=== PATIENT | female | born 1965 | race Hispanic/Latino ===

== ENCOUNTER 2017-11-01 17:33 | Observation (INO) | payer OTHER ==
[~2017-11-01] VITALS: Ht 177.8 cm; Wt 120.1 kg
[~2017-11-01 17:33] MED LIST: METF850T2 PO; SERT25TA PO
[2017-11-01 18:28] LABS: BASOPHILS % (AUTO) 0.3 % (0.0-5.0); EOSINOPHILS % (AUTO) 0.4 % (0.0-8.0); HEMATOCRIT 34.9 % (36-48); LYMPHOCYTES % (AUTO) 22.9 % (21.0-51.0); MEAN CORPUSCULAR HEMOGLOBIN 28.2 pg (27.0-33.0); MEAN CORPUSCULAR HGB CONC 33.9 g/dL (32.0-36.0); MEAN CORPUSCULAR VOLUME 83.1 fL (79-99); MONOCYTES % (AUTO) 9.4 % (3.0-13.0); PLATELET COUNT (AUTO) 192 K/uL (130-400); RED CELL DISTRIBUTION WIDTH 15.6 % (11.0-15.5); WHITE BLOOD COUNT (AUTO) 9.5 K/uL (4.8-10.8)
[2017-11-01 18:45] LABS: INR 1.94 (0.85-1.15); PARTIAL THROMBOPLASTIN TIME 41.7 SEC (26.3-35.5); PROTHROMBIN TIME 20.1 SEC (9.6-11.6)
[2017-11-01 18:46] LABS: CREATININE 0.8 mg/dL (0.5-1.5); POTASSIUM 3.3 mmol/L (3.5-5.1)
[2017-11-01] MEDS ORDERED: CEFTRIAXONE SODIUM 1 GM ONE (18:48)
[2017-11-01] MEDS ORDERED: POTASSIUM CHLORIDE 20 MEQ ERTAB PO ONE (18:49)
[2017-11-01 18:50] LABS: ALBUMIN 3.4 g/dL (3.5-5.0); BILIRUBIN,TOTAL 0.4 mg/dL (0.2-1.0); TOTAL PROTEIN, SERUM 7.7 g/dL (6.0-8.3)
[2017-11-01 20:25] LABS: APPEARANCE,URINE Clear (CLEAR); BILIRUBIN,URINE Negative (NEGATIVE); COLOR,URINE Yellow (YELLOW); GLUCOSE, URINE (UA) Negative (NEGATIVE); KETONES,URINE Negative (NEGATIVE); LEUKOCYTE ESTERASE ,URINE Trace (NEGATIVE); NITRATE,URINE Positive (NEGATIVE); OCCULT BLOOD,URINE Large (NEGATIVE); PROTEIN,URINE Negative (NEGATIVE)
[2017-11-01 21:05] LABS: BACTERIA,URINE Few /HPF (None Seen); SQUAMOUS EPITHELIAL CELL,UR Few /HPF (0-2)
[2017-11-01 21:06] LABS: MUCUS,URINE Rare LPF (None Seen)
[2017-11-01] MEDS ORDERED: ZOSYN 3.375GM+NS 50ML 50 ML IV ONE (23:19)
[2017-11-01] MEDS ORDERED: VANCOMYCIN PROTOCOL PER PHARMACY IV SCH (23:30)
[2017-11-01] MEDS ORDERED: HYDRALAZINE HCL 20 MG/ML VIAL IV PRN (23:30)
[2017-11-01] MEDS ORDERED: GLUCAGON 1MG KIT 1 MG ML IM PRN (23:30)
[2017-11-01] MEDS ORDERED: DEXTROSE 50%-WATER 50 ML DISP.SYRIN IV PRN (23:30)
[2017-11-01] MEDS ORDERED: POTASSIUM CHLORIDE 20 MEQ ERTAB PO PRN (23:30)
[2017-11-01] MEDS ORDERED: LIDOCAINE HCL-MPF 1% 2ML VIAL IJ PRN (23:30)
[2017-11-01] MEDS ORDERED: POTASSIUM CHLORIDE 10% ELIXIR 20 MEQ/15 ML UDCUP PO PRN (23:30)
[2017-11-01] MEDS ORDERED: POTASSIUM CHLORIDE 20MEQ/100ML 100 ML IV PRN (23:30)
[2017-11-02] VITALS (7 sets, daily range): BP systolic 121–165; BP diastolic 47–75
[2017-11-02] MEDS: SODIUM CHLORIDE 0.9% 1000ML 1,000 ML IV SCH ×3 (00:52→16:04)
[2017-11-02] MEDS: VANCOMYCIN 1GM+NS 250ML 250 ML IV SCH ×2 (00:52→07:55)
[2017-11-02] MEDS ORDERED: FURO20TA4 PO (01:03)
[2017-11-02] MEDS ORDERED: SERT100T12 PO (01:03)
[2017-11-02] MEDS ORDERED: ATEN25TA PO (01:03)
[2017-11-02] MEDS ORDERED: AEC81 PO (01:03)
[2017-11-02] MEDS ORDERED: CEPH500C2 PO (01:03)
[2017-11-02] MEDS ORDERED: WARF6TAB49 PO (01:03)
[2017-11-02] MEDS ORDERED: PRAV20TA4 PO (01:03)
[2017-11-02 04:59] LABS: BASOPHILS % (AUTO) 0.3 % (0.0-5.0); EOSINOPHILS % (AUTO) 1.2 % (0.0-8.0); HEMATOCRIT 32.2 % (36-48); LYMPHOCYTES % (AUTO) 30.7 % (21.0-51.0); MEAN CORPUSCULAR HEMOGLOBIN 28.4 pg (27.0-33.0); MEAN CORPUSCULAR HGB CONC 33.9 g/dL (32.0-36.0); MEAN CORPUSCULAR VOLUME 83.5 fL (79-99); MONOCYTES % (AUTO) 10.2 % (3.0-13.0); NEUTROPHILS % (AUTO) 57.6 % (40.0-77.0); NUCLEATED RED BLOOD CELLS 0.1 % (0.0-0.19); PLATELET COUNT (AUTO) 197 K/uL (130-400); RED BLOOD CELL COUNT(AUTO) 3.86 MIL/uL (4.00-5.50); RED CELL DISTRIBUTION WIDTH 15.9 % (11.0-15.5); WHITE BLOOD COUNT (AUTO) 7.4 K/uL (4.8-10.8)
[2017-11-02] MEDS ORDERED: COMPOUND IV REFRIGERATED 1 EACH IVSOLN MISC PRN (05:00)
[2017-11-02 05:18] LABS: CREATININE 0.8 mg/dL (0.5-1.5); POTASSIUM 3.9 mmol/L (3.5-5.1)
[2017-11-02] MEDS: INSULIN R PO SS1 SQ SCH ×4 (06:24→21:00)
[2017-11-02] MEDS: ZOSYN 3.375GM+NS 50ML 50 ML IV SCH ×3 (08:00→16:15)
[2017-11-02] MEDS ORDERED: VANCOMYCIN 750MG + NS 250 ML IV SCH ×2 (09:30)
[2017-11-02] MEDS ORDERED: VANCOMYCIN 1.75 GM in SODIUM CHLORIDE 0.9% 250 ML IV SCH (10:30)
[2017-11-02] MEDS: ENOXAPARIN SODIUM 30 MG/0.3 ML SQ SCH ×2 (11:55→21:02)
[2017-11-02] MEDS: FAMOTIDINE 20MG TAB 20 MG TAB PO SCH ×2 (11:57→21:00)
[2017-11-02] MEDS ORDERED: WARFARIN SODIUM 2 MG TAB PO SCH (16:00)
[2017-11-02] MEDS ORDERED: SERTRALINE HCL 25 MG PO SCH (21:00)
[2017-11-02] MEDS ORDERED: SERTRALINE HCL 50 MG TABLET PO SCH ×2 (21:00)
[2017-11-02] MEDS ORDERED: ATORVASTATIN CALCIUM 10 MG TABLET PO SCH (21:00)
[2017-11-02] MEDS: ATENOLOL 25 MG TABLET PO SCH (21:15)
[2017-11-02] MEDS: VANCOMYCIN 1.75 GM in SODIUM CHLORIDE 0.9% 250 ML IV SCH (22:23)
[2017-11-03] VITALS: BP 130/52
[2017-11-03] MEDS: ZOSYN 3.375GM+NS 50ML 50 ML IV SCH ×2 (01:03→08:36)
[2017-11-03 04:00] VITALS: BP 131/67
[2017-11-03 05:52] LABS: BASOPHILS % (AUTO) 0.5 % (0.0-5.0); EOSINOPHILS % (AUTO) 1.4 % (0.0-8.0); HEMATOCRIT 33.4 % (36-48); MEAN CORPUSCULAR HEMOGLOBIN 27.9 pg (27.0-33.0); MEAN CORPUSCULAR HGB CONC 33.1 g/dL (32.0-36.0); MEAN CORPUSCULAR VOLUME 84.2 fL (79-99); MONOCYTES % (AUTO) 9.2 % (3.0-13.0); NEUTROPHILS % (AUTO) 48.9 % (40.0-77.0); PLATELET COUNT (AUTO) 210 K/uL (130-400); RED BLOOD CELL COUNT(AUTO) 3.97 MIL/uL (4.00-5.50); WHITE BLOOD COUNT (AUTO) 5.7 K/uL (4.8-10.8)
[2017-11-03 06:07] LABS: CREATININE 0.8 mg/dL (0.5-1.5)
[2017-11-03] MEDS: INSULIN R PO SS1 SQ SCH ×2 (06:48→11:30)
[2017-11-03 07:56] VITALS: BP 149/99
[2017-11-03] MEDS: METFORMIN HCL 850 MG TABLET PO SCH ×2 (08:00→08:36)
[2017-11-03] MEDS: FAMOTIDINE 20MG TAB 20 MG TAB PO SCH (08:36)
[2017-11-03] MEDS: ATENOLOL 25 MG TABLET PO SCH (08:37)
[2017-11-03] MEDS: ENOXAPARIN SODIUM 30 MG/0.3 ML SQ SCH (08:38)
[2017-11-03] MEDS ORDERED: FUROSEMIDE 20 MG TABLET PO SCH (09:00)
[2017-11-03] MEDS ORDERED: ASPIRIN 81 MG EC TAB PO SCH (09:00)
[2017-11-03 11:20] VITALS: BP 135/66
[2017-11-03] MEDS: VANCOMYCIN 1.75 GM in SODIUM CHLORIDE 0.9% 250 ML IV SCH (11:58)
[2017-11-03] MEDS ORDERED: LEVO500T2 PO (12:08)
== END 2017-11-03 13:35 | disposition home or self-care (01) ==
LOC: EDH 17:33 → EDHIP 22:20 → 2AH 23:57 → 4CH 11-02 14:58
PROVIDERS: ADMIT Internal Medicine Nephrology; ATTEND Internal Medicine Nephrology
DX: L03.115 Cellulitis of right lower limb (principal); I71.4 Abdominal aortic aneurysm, without rupture; I10 Essential (primary) hypertension; E11.9 Type 2 diabetes mellitus without complications; E87.6 Hypokalemia; N39.0 Urinary tract infection, site not specified; Z95.2 Presence of prosthetic heart valve; Z83.3 Family history of diabetes mellitus; Z90.710 Acquired absence of both cervix and uterus; Z79.01 Long term (current) use of anticoagulants
CPT/HCPCS: 36415 ×3; 80048 ×2; 80053; 81001; 82948 ×6; 83605; 85025 ×3; 85610; 85730; 87040 ×3; 87088; 93971; 96365; 96366 ×2; 96367; 96372 ×2; 96375; 99285; G0378 ×39; J0696; J1650 ×3; J2543 ×4; J3370 ×3; J7030 ×3

== ENCOUNTER → 2018-01-15 | Outpatient (CLI) | payer OTHER ==
[~2018-01-15] MED LIST changes: +AEC81 PO; +ATEN25TA PO; +FURO20TA4 PO; +IOPAMIDOL-370 100 ML VIAL IV ONE; +LEVO500T2 PO; -METF850T2 PO; +PRAV20TA4 PO; +SERT100T12 PO; -SERT25TA PO; +WARF6TAB49 PO
== END | disposition home or self-care (01) ==
LOC: OIH 10:06
PROVIDERS: ATTEND Internal Medicine Cardiovascular Disease
DX: I71.4 Abdominal aortic aneurysm, without rupture (principal); I71.2 Thoracic aortic aneurysm, without rupture; I71.02 Dissection of abdominal aorta; K76.0 Fatty (change of) liver, not elsewhere classified; K76.89 Other specified diseases of liver
CPT/HCPCS: 71275; 74174; Q9967

== ENCOUNTER 2018-04-02 08:00 | Inpatient (IN) | payer OTHER ==
[~2018-04-02] VITALS: Ht 177.8 cm; Wt 128.3 kg
[~2018-04-02 08:00] MED LIST changes: -AEC81 PO; -ATEN25TA PO; -IOPAMIDOL-370 100 ML VIAL IV ONE; -LEVO500T2 PO; +LOSA50TA25 PO; -PRAV20TA4 PO; -SERT100T12 PO; -WARF6TAB49 PO
[2018-04-02 12:05] LABS: BASOPHILS % (AUTO) 0.7 % (0.0-5.0); EOSINOPHILS % (AUTO) 0.6 % (0.0-8.0); HEMATOCRIT 37.3 % (36-48); LYMPHOCYTES % (AUTO) 35.4 % (21.0-51.0); MEAN CORPUSCULAR HEMOGLOBIN 27.3 pg (27.0-33.0); MEAN CORPUSCULAR VOLUME 82.7 fL (79-99); MONOCYTES % (AUTO) 5.9 % (3.0-13.0); NEUTROPHILS % (AUTO) 57.4 % (40.0-77.0); PLATELET COUNT (AUTO) 203 K/uL (130-400); RED BLOOD CELL COUNT(AUTO) 4.51 MIL/uL (4.00-5.50); RED CELL DISTRIBUTION WIDTH 16.2 % (11.0-15.5); WHITE BLOOD COUNT (AUTO) 5.8 K/uL (4.8-10.8)
[2018-04-02 12:09] VITALS: BP 149/55
[2018-04-02 12:13] LABS: CREATININE 0.8 mg/dL (0.5-1.5); POTASSIUM 3.7 mmol/L (3.5-5.1)
[2018-04-02 12:24] LABS: INR 2.46 (0.85-1.15); PARTIAL THROMBOPLASTIN TIME 48.2 SEC (26.3-35.5); PROTHROMBIN TIME 25.4 SEC (9.6-11.6)
[2018-04-02 12:33] LABS: APPEARANCE,URINE Cloudy (CLEAR); BILIRUBIN,URINE Negative (NEGATIVE); COLOR,URINE Yellow (YELLOW); GLUCOSE, URINE (UA) Negative (NEGATIVE); KETONES,URINE Negative (NEGATIVE); LEUKOCYTE ESTERASE ,URINE Large (NEGATIVE); NITRATE,URINE Negative (NEGATIVE); OCCULT BLOOD,URINE Large (NEGATIVE); PH,URINE 5.5 (5.0-8.0); PROTEIN,URINE Negative (NEGATIVE); UROBILINOGEN,URINE 0.2 mg/dL (0.2-1.0)
[2018-04-02 12:55] LABS: BACTERIA,URINE Moderate /HPF (None Seen)
[2018-04-02 12:56] LABS: YEAST,URINE BUDDING Few /HPF (None Seen)
[2018-04-02] MEDS ORDERED: SERT100T12 PO (13:15)
[2018-04-02] MEDS ORDERED: ALBUTEROL SULF IH (13:15)
[2018-04-02] MEDS ORDERED: OMEG-148 PO (13:15)
[2018-04-02] MEDS ORDERED: WARF6TAB23 PO (13:15)
[2018-04-02] MEDS ORDERED: ASPI-555 PO (13:15)
[2018-04-02] MEDS ORDERED: FLUT16H NS (13:15)
[2018-04-02] MEDS ORDERED: PRAV20TA4 PO (13:15)
[2018-04-04] VITALS (13 sets, daily range): BP systolic 117–164; BP diastolic 43–74
[2018-04-04] MEDS ORDERED: PHENYLEPHRINE HCL 10 MG/ML 1ML VIAL IV ONE (11:06)
[2018-04-04] MEDS ORDERED: NOREPINEPHRINE BITARTRATE 1 MG/1 ML ML IV ONE (11:06)
[2018-04-04] MEDS ORDERED: NITROGLYCERIN 50 MG/D5% WATER 1 BOT ONE (11:09)
[2018-04-04] MEDS ORDERED: LIDOCAINE HCL-MPF 1% 2ML VIAL ONE (11:34)
[2018-04-04 11:44] LABS: INR 1.35 (0.85-1.15); PARTIAL THROMBOPLASTIN TIME 37.2 SEC (26.3-35.5); PROTHROMBIN TIME 14.1 SEC (9.6-11.6)
[2018-04-04] MEDS ORDERED: ATEN25TA PO (11:58)
[2018-04-04] MEDS ORDERED: SODIUM CHLORIDE 0.9% 1000ML 1,000 ML IV ONE (12:57)
[2018-04-04] MEDS ORDERED: PROPOFOL 10 MG/ML 20ML VIAL IV ONE (13:00)
[2018-04-04] MEDS ORDERED: FENTANYL CITRATE PF 50 MCG/1 ML 2ML VIAL ONE (13:00)
[2018-04-04] MEDS ORDERED: LIDOCAINE PF 2% 5ML ABBOJECT ONE (13:01)
[2018-04-04] MEDS ORDERED: HEPARIN SODIUM 1000UNIT/ML 10ML VIAL ONE ×2 (13:01→14:08)
[2018-04-04] MEDS ORDERED: ROCURONIUM 10MG/1ML SYR 10 MG/ML ML ONE (13:06)
[2018-04-04] MEDS ORDERED: SUCCINYLCHOLINE 200MG/10ML SYR ONE (13:06)
[2018-04-04] MEDS ORDERED: MIDAZOLAM HCL 1 MG/ML 2ML VIAL ONE (13:53)
[2018-04-04] MEDS ORDERED: IODIXANOL 320 MG/ML 100 ML VIAL ONE (14:08)
[2018-04-04] MEDS ORDERED: CEFAZOLIN SODIUM 1 GM VIAL ONE (14:50)
[2018-04-04] MEDS ORDERED: GLYCOPYRROLATE 0.2 MG/ML 5 ML VIAL ONE ×2 (15:01→16:25)
[2018-04-04] MEDS ORDERED: NEOSTIGMINE 5MG/5ML SYR IV ONE ×2 (15:45→16:25)
[2018-04-04] MEDS ORDERED: ACETAMINOPHEN 325 MG TAB PO PRN (16:15)
[2018-04-04] MEDS ORDERED: ACETAMINOPHEN-CODEINE 300/30MG TAB PO PRN ×2 (16:15)
[2018-04-04] MEDS ORDERED: MORPHINE SULFATE 5 MG/ML VIAL IV PRN (16:15)
[2018-04-04] MEDS ORDERED: SODIUM CHLORIDE 0.9% 1000ML 1,000 ML IV SCH (16:15)
[2018-04-04] MEDS ORDERED: FLUTICASONE PROPIONATE 50MCG/SPRAY 16 GM BOTTLE NS SCH (16:15)
[2018-04-04] MEDS ORDERED: MORPHINE SULFATE 4 MG/1ML SYG IV PRN (16:15)
[2018-04-04] MEDS ORDERED: ONDANSETRON HCL 4 MG/2 ML VIAL IV PRN (16:15)
[2018-04-04] MEDS ORDERED: NITROGLYCERIN 50 MG/D5% WATER 250 BOT IV PRN (17:00)
[2018-04-04] MEDS ORDERED: NICARDIPINE HCL 100 MG in SODIUM CHLORIDE 0.9% 60 ML IV PRN (17:00)
[2018-04-04] MEDS: ACETAMINOPHEN 325 MG TAB PO PRN (19:36)
[2018-04-04] MEDS: ATENOLOL 25 MG TABLET PO SCH (21:00)
[2018-04-04] MEDS ORDERED: SIMVASTATIN 10 MG TABLET PO SCH (21:00)
[2018-04-04] MEDS ORDERED: WARFARIN SODIUM 10 MG TABLET PO ONE (21:00)
[2018-04-04] MEDS ORDERED: ASPIRIN 81MG TAB.CHEW PO SCH (21:00)
[2018-04-04] MEDS ORDERED: SERTRALINE HCL 50 MG TABLET PO SCH (21:00)
[2018-04-04] MEDS: FLUTICASONE PROPIONATE 50MCG/SPRAY 16 GM BOTTLE NS SCH ×2 (21:00→21:03)
[2018-04-04] MEDS: CEFAZOLIN SODIUM 1 GM VIAL IVP SCH (22:20)
[2018-04-04] MEDS ORDERED: PHARMACY COMMUNICATION MISC SCH (23:00)
[2018-04-05] VITALS (11 sets, daily range): BP systolic 97–140; BP diastolic 34–82
[2018-04-05 03:54] LABS: HEMATOCRIT 34.9 % (36-48); MEAN CORPUSCULAR HEMOGLOBIN 26.7 pg (27.0-33.0); MEAN CORPUSCULAR VOLUME 83.4 fL (79-99); PLATELET COUNT (AUTO) 167 K/uL (130-400); RED BLOOD CELL COUNT(AUTO) 4.19 MIL/uL (4.00-5.50); RED CELL DISTRIBUTION WIDTH 16.3 % (11.0-15.5); WHITE BLOOD COUNT (AUTO) 8.2 K/uL (4.8-10.8)
[2018-04-05 04:07] LABS: INR 1.18 (0.85-1.15); PROTHROMBIN TIME 12.3 SEC (9.6-11.6)
[2018-04-05 04:21] LABS: CREATININE 0.7 mg/dL (0.5-1.5); POTASSIUM 3.9 mmol/L (3.5-5.1)
[2018-04-05] MEDS: CEFAZOLIN SODIUM 1 GM VIAL IVP SCH (06:40)
[2018-04-05] MEDS: ACETAMINOPHEN 325 MG TAB PO PRN (08:26)
[2018-04-05] MEDS ORDERED: WARFARIN SODIUM 10 MG TABLET PO SCH (08:30)
[2018-04-05] MEDS: ATENOLOL 25 MG TABLET PO SCH (09:00)
[2018-04-05] MEDS ORDERED: LOSARTAN 50 MG TABLET PO SCH (09:00)
[2018-04-05] MEDS ORDERED: FUROSEMIDE 20 MG TABLET PO SCH (09:00)
[2018-04-05] MEDS: FLUTICASONE PROPIONATE 50MCG/SPRAY 16 GM BOTTLE NS SCH (09:00)
[2018-04-05] MEDS ORDERED: WARFARIN SODIUM 2 MG TAB PO SCH (16:00)
[2018-04-05] MEDS ORDERED: FISH OIL 1000 MG/CAP PO SCH (21:00)
== END 2018-04-05 11:20 | disposition home or self-care (01) | DRG 181 ==
LOC: EDSTATUS 08:00 → DAHIP 04-04 11:06 → 2CH 04-04 16:21
PROVIDERS: ADMIT Internal Medicine Cardiovascular Disease; ATTEND Internal Medicine Cardiovascular Disease
PROC: 04QK0ZZ Repair Right Femoral Artery, Open Approach (ICD-10-PCS; principal; 2018-04-04)
PROC: 04V03DZ Restriction of Abdominal Aorta with Intraluminal Device, Percutaneous Approach (ICD-10-PCS; 2018-04-04)
PROC: B4101ZZ Fluoroscopy of Abdominal Aorta using Low Osmolar Contrast (ICD-10-PCS; 2018-04-04)
DX: I71.4 Abdominal aortic aneurysm, without rupture (principal); I72.3 Aneurysm of iliac artery; Q87.40 Marfan syndrome, unspecified; E11.9 Type 2 diabetes mellitus without complications; I10 Essential (primary) hypertension; Z95.2 Presence of prosthetic heart valve; Z79.899 Other long term (current) drug therapy; Z90.710 Acquired absence of both cervix and uterus; Z80.8 Family history of malignant neoplasm of other organs or systems; Z83.3 Family history of diabetes mellitus
CPT/HCPCS: 34705; 34713; 36415; 71045; 80048; 81001; 85025; 85027; 85347; 85610; 85730; 86850; 86900; 86901; 86922; 93005; A4218; A4344; A4606; C1760; C1769; C1887; C1894; J0330; J0690; J1644; J2001; J2250; J2370; J2704; J2710; J3010; J3490; J7030; Q9967

== ENCOUNTER → 2018-06-01 | Outpatient (CLI) | payer OTHER ==
[~2018-06-01] MED LIST changes: +ALBUTEROL SULF IH; +ASPI-555 PO; +ATEN25TA PO; +FLUT16H NS; +IOHEXOL 350 MG/ML 100ML INFUS..BTL IV ONE; +OMEG-148 PO; +PRAV20TA4 PO; +SERT100T12 PO; +WARF6TAB23 PO
== END | disposition home or self-care (01) ==
LOC: OIH 08:05
PROVIDERS: ATTEND Internal Medicine Cardiovascular Disease
DX: I71.01 Dissection of thoracic aorta (principal); I71.2 Thoracic aortic aneurysm, without rupture; I71.4 Abdominal aortic aneurysm, without rupture; I10 Essential (primary) hypertension
CPT/HCPCS: 71275; 74174; Q9967

== ENCOUNTER 2018-10-19 22:39 | Emergency (ER) | payer MEDICARE, OTHER ==
[~2018-10-19 22:39] MED LIST changes: +CEFTRIAXONE SODIUM 2 GM VIAL IVP ONE; -IOHEXOL 350 MG/ML 100ML INFUS..BTL IV ONE; -LOSA50TA25 PO; +LOSA50TA64 PO
[2018-10-19 23:42] LABS: BASOPHILS % (AUTO) 0.2 % (0.0-5.0); EOSINOPHILS % (AUTO) 0.1 % (0.0-8.0); HEMATOCRIT 33.5 % (36-48); LYMPHOCYTES % (AUTO) 5.4 % (21.0-51.0); MEAN CORPUSCULAR HEMOGLOBIN 26.4 pg (27.0-33.0); MEAN CORPUSCULAR HGB CONC 32.5 g/dL (32.0-36.0); MEAN CORPUSCULAR VOLUME 81.3 fL (79-99); MONOCYTES % (AUTO) 6.6 % (3.0-13.0); NEUTROPHILS % (AUTO) 87.7 % (40.0-77.0); PLATELET COUNT (AUTO) 167 K/uL (130-400); RED BLOOD CELL COUNT(AUTO) 4.12 MIL/uL (4.00-5.50); RED CELL DISTRIBUTION WIDTH 16.4 % (11.0-15.5); WHITE BLOOD COUNT (AUTO) 10.3 K/uL (4.8-10.8)
[2018-10-19 23:52] LABS: CREATININE 0.9 mg/dL (0.5-1.5); POTASSIUM 3.8 mmol/L (3.5-5.1)
[2018-10-19 23:56] LABS: ALBUMIN 3.7 g/dL (3.5-5.0); BILIRUBIN,TOTAL 0.4 mg/dL (0.2-1.0); TOTAL PROTEIN, SERUM 7.5 g/dL (6.0-8.3)
[2018-10-19] MEDS ORDERED: SODIUM CHLORIDE 0.9% 1000ML 1,000 ML IV ONE (23:57)
[2018-10-19] MEDS ORDERED: CEFTRIAXONE SODIUM 2 GM VIAL IVP ONE (23:57)
[2018-10-20] LABS: INR 1.9 (0.85-1.15); PARTIAL THROMBOPLASTIN TIME 38.1 SEC (26.3-35.5); PROTHROMBIN TIME 19.7 SEC (9.6-11.6)
[2018-10-20] MEDS ORDERED: ACETAMINOPHEN EXTRA STRENGTH 500 MG TABLET ONE (00:59)
[2018-10-20 01:35] LABS: APPEARANCE,URINE Cloudy (CLEAR); BILIRUBIN,URINE Negative (NEGATIVE); COLOR,URINE Yellow (YELLOW); GLUCOSE, URINE (UA) Negative (NEGATIVE); KETONES,URINE Negative (NEGATIVE); LEUKOCYTE ESTERASE ,URINE Moderate (NEGATIVE); NITRATE,URINE Positive (NEGATIVE); OCCULT BLOOD,URINE Moderate (NEGATIVE); PH,URINE 5.5 (5.0-8.0); PROTEIN,URINE Negative (NEGATIVE)
[2018-10-20 01:44] LABS: BACTERIA,URINE Moderate /HPF (None Seen)
[2018-10-20 02:49] LABS: BASOPHILS % (AUTO) 0.3 % (0.0-5.0); EOSINOPHILS % (AUTO) 0.1 % (0.0-8.0); HEMATOCRIT 32.4 % (36-48); LYMPHOCYTES % (AUTO) 9.7 % (21.0-51.0); MEAN CORPUSCULAR HEMOGLOBIN 26.4 pg (27.0-33.0); MEAN CORPUSCULAR HGB CONC 32.8 g/dL (32.0-36.0); MEAN CORPUSCULAR VOLUME 80.4 fL (79-99); MONOCYTES % (AUTO) 8.1 % (3.0-13.0); NEUTROPHILS % (AUTO) 81.8 % (40.0-77.0); PLATELET COUNT (AUTO) 160 K/uL (130-400); RED BLOOD CELL COUNT(AUTO) 4.03 MIL/uL (4.00-5.50); RED CELL DISTRIBUTION WIDTH 16.4 % (11.0-15.5); WHITE BLOOD COUNT (AUTO) 9.7 K/uL (4.8-10.8)
[2018-10-20] MEDS ORDERED: ONDANSETRON HCL 4 MG/2 ML VIAL ONE (03:20)
== END 2018-10-20 03:58 | disposition home or self-care (01) ==
LOC: EDH 22:39
DX: N39.0 Urinary tract infection, site not specified (principal); I10 Essential (primary) hypertension; E11.9 Type 2 diabetes mellitus without complications; Z90.710 Acquired absence of both cervix and uterus
CPT/HCPCS: 36415 ×2; 71045; 80053; 81001; 82550; 83605 ×2; 84484; 85025 ×2; 85610; 85730; 87040 ×2; 87077 ×2; 87088; 87186 ×2; 87804 ×2; 93005; 96361; 96374; 99284; J0696; J7030; J2405

== ENCOUNTER 2020-09-29 18:34 | Inpatient (IN) | payer MEDICARE, OTHER ==
[~2020-09-29] VITALS: Ht 177.8 cm; Wt 138.1 kg
[~2020-09-29 18:34] MED LIST changes: -ASPI-555 PO; +ASPI-556 PO; -CEFTRIAXONE SODIUM 2 GM VIAL IVP ONE; +SERT-440 PO; -SERT100T12 PO
[2020-09-29 19:17] LABS: BASOPHILS % (AUTO) 0.4 % (0.0-5.0); EOSINOPHILS % (AUTO) 0.4 % (0.0-8.0); HEMATOCRIT 36.4 % (36-48); LYMPHOCYTES % (AUTO) 21.6 % (21.0-51.0); MEAN CORPUSCULAR HEMOGLOBIN 26.7 pg (27.0-33.0); MEAN CORPUSCULAR HGB CONC 32.4 g/dL (32.0-36.0); MEAN CORPUSCULAR VOLUME 82.4 fL (79-99); MONOCYTES % (AUTO) 6.2 % (3.0-13.0); NEUTROPHILS % (AUTO) 70.8 % (40.0-77.0); PLATELET COUNT (AUTO) 217 K/uL (130-400); RED BLOOD CELL COUNT(AUTO) 4.42 MIL/uL (4.00-5.50); RED CELL DISTRIBUTION WIDTH 13.7 % (11.0-15.5); WHITE BLOOD COUNT (AUTO) 8.2 K/uL (4.8-10.8)
[2020-09-29 19:21] LABS: CREATININE 1.1 mg/dL (0.5-1.5)
[2020-09-29 19:25] LABS: ALBUMIN 3.6 g/dL (3.5-5.0); BILIRUBIN,TOTAL 0.4 mg/dL (0.2-1.0); TOTAL PROTEIN, SERUM 7.4 g/dL (6.0-8.3)
[2020-09-29 19:28] LABS: APPEARANCE,URINE Cloudy (CLEAR); BILIRUBIN,URINE Negative (NEGATIVE); COLOR,URINE Yellow (YELLOW); GLUCOSE, URINE (UA) >=1000 mg/dL (NEGATIVE); KETONES,URINE Negative (NEGATIVE); LEUKOCYTE ESTERASE ,URINE Small (NEGATIVE); NITRATE,URINE Positive (NEGATIVE); OCCULT BLOOD,URINE Large (NEGATIVE); PROTEIN,URINE Negative (NEGATIVE)
[2020-09-29 19:50] LABS: PROTHROMBIN TIME 34.5 SEC (9.6-11.6)
[2020-09-29 19:57] LABS: BACTERIA,URINE Few /HPF (None Seen)
[2020-09-29 20:09] LABS: INR 3.55 (0.85-1.15)
[2020-09-29] MEDS ORDERED: IOHEXOL 350 MG/ML 100ML INFUS..BTL IV ONE (20:17)
[2020-09-30] MEDS ORDERED: CEFTRIAXONE 1G VIAL ONE (01:59)
[2020-09-30] MEDS ORDERED: 0.9%NACL 1000ML 1,000 ML IV ONE (02:00)
[2020-09-30] MEDS: FUROSEMIDE 20 MG TABLET PO SCH (09:30)
[2020-09-30 09:50] LABS: HEMOGLOBIN A1C 11.7 % (4.0-6.0)
[2020-09-30] MEDS: ATENOLOL 25 MG TABLET PO SCH ×2 (10:06→22:45)
[2020-09-30] MEDS ORDERED: LOSARTAN 50 MG TABLET PO SCH (14:00)
[2020-09-30] MEDS: ASPIRIN 81MG CHEW TAB PO SCH (14:43)
[2020-09-30] MEDS: SERTRALINE HCL 50 MG TABLET PO SCH (14:44)
[2020-09-30] MEDS: CEFTRIAXONE 1G VIAL IVP SCH (14:48)
[2020-09-30 15:12] VITALS: BP 130/50
[2020-09-30] MEDS: INSULIN HUMULIN R 100 UNIT/ML 3ML SQ SCH ×2 (16:54→22:57)
[2020-09-30] MEDS: WARFARIN SODIUM 2 MG TAB PO SCH (17:51)
[2020-09-30 20:00] VITALS: BP 125/59
[2020-09-30] MEDS: SIMVASTATIN 20 MG TABLET PO SCH (22:45)
[2020-10-01] VITALS: BP 123/56
[2020-10-01 04:00] VITALS: BP_SYST 121; BP_SYST 147; BP_DIAS 54; BP_DIAS 67
[2020-10-01 06:12] LABS: BASOPHILS % (AUTO) 0.3 % (0.0-5.0); EOSINOPHILS % (AUTO) 0.9 % (0.0-8.0); HEMATOCRIT 37.1 % (36-48); LYMPHOCYTES % (AUTO) 37.4 % (21.0-51.0); MEAN CORPUSCULAR HEMOGLOBIN 26.4 pg (27.0-33.0); MEAN CORPUSCULAR HGB CONC 31.3 g/dL (32.0-36.0); MEAN CORPUSCULAR VOLUME 84.3 fL (79-99); MONOCYTES % (AUTO) 6.4 % (3.0-13.0); NEUTROPHILS % (AUTO) 54.7 % (40.0-77.0); PLATELET COUNT (AUTO) 221 K/uL (130-400); WHITE BLOOD COUNT (AUTO) 6.5 K/uL (4.8-10.8)
[2020-10-01 06:21] LABS: CREATININE 0.7 mg/dL (0.5-1.5); POTASSIUM 3.4 mmol/L (3.5-5.1)
[2020-10-01 06:24] LABS: INR 2.7 (0.85-1.15); PROTHROMBIN TIME 26.9 SEC (9.6-11.6)
[2020-10-01] MEDS: INSULIN HUMULIN R 100 UNIT/ML 3ML SQ SCH ×4 (07:01→20:22)
[2020-10-01 07:44] VITALS: BP 128/61
[2020-10-01] MEDS ORDERED: ACETAMINOPHEN 325 MG TAB PO PRN (09:00)
[2020-10-01] MEDS ORDERED: ACETAMINOPHEN 325 MG TAB ONE (09:13)
[2020-10-01] MEDS: CEFTRIAXONE 1G VIAL IVP SCH (09:18)
[2020-10-01] MEDS: ASPIRIN 81MG CHEW TAB PO SCH (09:18)
[2020-10-01] MEDS: SERTRALINE HCL 50 MG TABLET PO SCH (09:19)
[2020-10-01] MEDS: FUROSEMIDE 20 MG TABLET PO SCH (09:19)
[2020-10-01] MEDS: ATENOLOL 25 MG TABLET PO SCH ×2 (09:20→20:25)
[2020-10-01] MEDS: LOSARTAN 50 MG TABLET PO SCH (09:20)
[2020-10-01] MEDS ORDERED: KCL 20 MEQ ERTAB PO SCH (09:30)
[2020-10-01 11:34] VITALS: BP 126/59
[2020-10-01] MEDS: MEROPENEM 1 GM VIAL IVP SCH ×2 (12:34→20:25)
[2020-10-01 15:50] VITALS: BP 132/65
[2020-10-01] MEDS: WARFARIN SODIUM 2 MG TAB PO SCH (16:54)
[2020-10-01 19:00] VITALS: BP 118/56
[2020-10-01] MEDS ORDERED: PHARMACY COMMUNICATION MISC SCH (19:15)
[2020-10-01] MEDS: INSULIN GLARGINE 100 UNITS/ML 10 ML VIAL SQ SCH (20:23)
[2020-10-01] MEDS: SIMVASTATIN 20 MG TABLET PO SCH (20:25)
[2020-10-02] VITALS: BP 121/52
[2020-10-02] MEDS: MEROPENEM 1 GM VIAL IVP SCH ×3 (03:52→20:15)
[2020-10-02] MEDS: INSULIN HUMULIN R 100 UNIT/ML 3ML SQ SCH ×4 (05:39→20:50)
[2020-10-02 05:43] LABS: CREATININE 0.7 mg/dL (0.5-1.5); POTASSIUM 3.4 mmol/L (3.5-5.1)
[2020-10-02 08:31] VITALS: BP 110/58
[2020-10-02] MEDS ORDERED: KCL 20 MEQ ERTAB PO SCH (09:00)
[2020-10-02] MEDS: ATENOLOL 25 MG TABLET PO SCH ×2 (09:00→20:44)
[2020-10-02] MEDS: ASPIRIN 81MG CHEW TAB PO SCH (09:16)
[2020-10-02] MEDS: FUROSEMIDE 20 MG TABLET PO SCH (09:18)
[2020-10-02] MEDS: LOSARTAN 50 MG TABLET PO SCH (09:18)
[2020-10-02] MEDS: SERTRALINE HCL 50 MG TABLET PO SCH (09:18)
[2020-10-02 11:43] VITALS: BP 128/54
[2020-10-02 16:15] VITALS: BP 109/48
[2020-10-02] MEDS: WARFARIN SODIUM 2 MG TAB PO SCH (18:16)
[2020-10-02 19:00] VITALS: BP 133/68
[2020-10-02] MEDS: SIMVASTATIN 20 MG TABLET PO SCH (20:44)
[2020-10-02] MEDS: INSULIN GLARGINE 100 UNITS/ML 10 ML VIAL SQ SCH (20:49)
[2020-10-03] VITALS: BP 122/61
[2020-10-03 04:00] VITALS: BP 123/60
[2020-10-03] MEDS: MEROPENEM 1 GM VIAL IVP SCH ×3 (05:03→19:57)
[2020-10-03 05:51] LABS: BASOPHILS % (AUTO) 0.5 % (0.0-5.0); EOSINOPHILS % (AUTO) 0.9 % (0.0-8.0); HEMATOCRIT 36.8 % (36-48); LYMPHOCYTES % (AUTO) 38.5 % (21.0-51.0); MEAN CORPUSCULAR HEMOGLOBIN 26.4 pg (27.0-33.0); MEAN CORPUSCULAR HGB CONC 31.8 g/dL (32.0-36.0); MEAN CORPUSCULAR VOLUME 83.1 fL (79-99); MONOCYTES % (AUTO) 6.7 % (3.0-13.0); NEUTROPHILS % (AUTO) 52.9 % (40.0-77.0); PLATELET COUNT (AUTO) 211 K/uL (130-400); RED BLOOD CELL COUNT(AUTO) 4.43 MIL/uL (4.00-5.50); WHITE BLOOD COUNT (AUTO) 6.6 K/uL (4.8-10.8)
[2020-10-03 06:10] LABS: CREATININE 0.8 mg/dL (0.5-1.5); POTASSIUM 3.7 mmol/L (3.5-5.1)
[2020-10-03] MEDS: INSULIN HUMULIN R 100 UNIT/ML 3ML SQ SCH ×4 (06:33→20:56)
[2020-10-03 08:00] VITALS: BP 122/56
[2020-10-03] MEDS: LOSARTAN 50 MG TABLET PO SCH (08:45)
[2020-10-03] MEDS: SERTRALINE HCL 50 MG TABLET PO SCH (08:45)
[2020-10-03] MEDS: FUROSEMIDE 20 MG TABLET PO SCH (08:45)
[2020-10-03] MEDS: ASPIRIN 81MG CHEW TAB PO SCH (08:45)
[2020-10-03] MEDS: ATENOLOL 25 MG TABLET PO SCH ×2 (08:46→20:52)
[2020-10-03 11:42] VITALS: BP 132/74
[2020-10-03 16:00] VITALS: BP 126/57
[2020-10-03] MEDS: WARFARIN SODIUM 2 MG TAB PO SCH (16:54)
[2020-10-03 20:00] VITALS: BP 129/65
[2020-10-03] MEDS: INSULIN GLARGINE 100 UNITS/ML 10 ML VIAL SQ SCH (20:44)
[2020-10-03] MEDS: SIMVASTATIN 20 MG TABLET PO SCH (20:52)
[2020-10-04] VITALS (7 sets, daily range): BP systolic 127–157; BP diastolic 54–68
[2020-10-04] MEDS: MEROPENEM 1 GM VIAL IVP SCH ×3 (05:51→20:55)
[2020-10-04 06:23] LABS: BASOPHILS % (AUTO) 0.3 % (0.0-5.0); HEMATOCRIT 35.6 % (36-48); LYMPHOCYTES % (AUTO) 39.4 % (21.0-51.0); MEAN CORPUSCULAR HEMOGLOBIN 26.5 pg (27.0-33.0); MEAN CORPUSCULAR HGB CONC 31.7 g/dL (32.0-36.0); MEAN CORPUSCULAR VOLUME 83.4 fL (79-99); MONOCYTES % (AUTO) 5.8 % (3.0-13.0); NEUTROPHILS % (AUTO) 53.2 % (40.0-77.0); PLATELET COUNT (AUTO) 196 K/uL (130-400); RED BLOOD CELL COUNT(AUTO) 4.27 MIL/uL (4.00-5.50); RED CELL DISTRIBUTION WIDTH 14.1 % (11.0-15.5); WHITE BLOOD COUNT (AUTO) 7.2 K/uL (4.8-10.8)
[2020-10-04] MEDS: INSULIN HUMULIN R 100 UNIT/ML 3ML SQ SCH ×4 (06:32→21:10)
[2020-10-04 06:36] LABS: INR 2.3 (0.85-1.15); PROTHROMBIN TIME 23.2 SEC (9.6-11.6)
[2020-10-04 06:40] LABS: CREATININE 0.8 mg/dL (0.5-1.5); POTASSIUM 3.4 mmol/L (3.5-5.1)
[2020-10-04] MEDS: SERTRALINE HCL 50 MG TABLET PO SCH (07:35)
[2020-10-04] MEDS: FUROSEMIDE 20 MG TABLET PO SCH (07:35)
[2020-10-04] MEDS: LOSARTAN 50 MG TABLET PO SCH (07:35)
[2020-10-04] MEDS: ATENOLOL 25 MG TABLET PO SCH ×2 (07:36→20:56)
[2020-10-04] MEDS: ASPIRIN 81MG CHEW TAB PO SCH (07:36)
[2020-10-04] MEDS: WARFARIN SODIUM 2 MG TAB PO SCH (18:30)
[2020-10-04] MEDS: SIMVASTATIN 20 MG TABLET PO SCH (21:01)
[2020-10-04] MEDS: INSULIN GLARGINE 100 UNITS/ML 10 ML VIAL SQ SCH (21:10)
[2020-10-05] VITALS: BP 132/68
[2020-10-05 04:00] VITALS: BP 124/70
[2020-10-05] MEDS: MEROPENEM 1 GM VIAL IVP SCH ×3 (04:41→20:24)
[2020-10-05 05:16] LABS: BASOPHILS % (AUTO) 0.3 % (0.0-5.0); EOSINOPHILS % (AUTO) 1.4 % (0.0-8.0); LYMPHOCYTES % (AUTO) 17.8 % (21.0-51.0); MEAN CORPUSCULAR HEMOGLOBIN 26.2 pg (27.0-33.0); MEAN CORPUSCULAR HGB CONC 30.5 g/dL (32.0-36.0); MEAN CORPUSCULAR VOLUME 85.6 fL (79-99); MONOCYTES % (AUTO) 6.3 % (3.0-13.0); NEUTROPHILS % (AUTO) 73.7 % (40.0-77.0); PLATELET COUNT (AUTO) 204 K/uL (130-400); RED BLOOD CELL COUNT(AUTO) 4.32 MIL/uL (4.00-5.50); RED CELL DISTRIBUTION WIDTH 13.9 % (11.0-15.5); WHITE BLOOD COUNT (AUTO) 5.8 K/uL (4.8-10.8)
[2020-10-05 05:27] LABS: CREATININE 0.8 mg/dL (0.5-1.5); POTASSIUM 3.6 mmol/L (3.5-5.1)
[2020-10-05 05:35] LABS: INR 2.51 (0.85-1.15); PROTHROMBIN TIME 25.2 SEC (9.6-11.6)
[2020-10-05] MEDS: INSULIN HUMULIN R 100 UNIT/ML 3ML SQ SCH ×4 (07:30→20:42)
[2020-10-05 07:45] VITALS: BP 136/70
[2020-10-05] MEDS: ATENOLOL 25 MG TABLET PO SCH ×2 (08:58→20:26)
[2020-10-05] MEDS: LOSARTAN 50 MG TABLET PO SCH (08:58)
[2020-10-05] MEDS: ASPIRIN 81MG CHEW TAB PO SCH (08:58)
[2020-10-05] MEDS: SERTRALINE HCL 50 MG TABLET PO SCH (08:59)
[2020-10-05] MEDS: FUROSEMIDE 20 MG TABLET PO SCH (08:59)
[2020-10-05 11:36] VITALS: BP 112/60
[2020-10-05 16:17] VITALS: BP 113/53
[2020-10-05] MEDS: WARFARIN SODIUM 2 MG TAB PO SCH (16:47)
[2020-10-05 20:01] VITALS: BP 128/62
[2020-10-05] MEDS: SIMVASTATIN 20 MG TABLET PO SCH (20:34)
[2020-10-05] MEDS: INSULIN GLARGINE 100 UNITS/ML 10 ML VIAL SQ SCH (20:43)
[2020-10-06] VITALS (7 sets, daily range): BP systolic 103–139; BP diastolic 47–70
[2020-10-06] MEDS: MEROPENEM 1 GM VIAL IVP SCH ×3 (05:10→20:44)
[2020-10-06 06:01] LABS: BASOPHILS % (AUTO) 0.3 % (0.0-5.0); EOSINOPHILS % (AUTO) 2.1 % (0.0-8.0); LYMPHOCYTES % (AUTO) 37.4 % (21.0-51.0); MEAN CORPUSCULAR HEMOGLOBIN 26.6 pg (27.0-33.0); MEAN CORPUSCULAR HGB CONC 31.7 g/dL (32.0-36.0); MEAN CORPUSCULAR VOLUME 83.9 fL (79-99); MONOCYTES % (AUTO) 6.8 % (3.0-13.0); NEUTROPHILS % (AUTO) 53.1 % (40.0-77.0); PLATELET COUNT (AUTO) 197 K/uL (130-400); RED BLOOD CELL COUNT(AUTO) 4.17 MIL/uL (4.00-5.50); WHITE BLOOD COUNT (AUTO) 5.8 K/uL (4.8-10.8)
[2020-10-06] MEDS: INSULIN HUMULIN R 100 UNIT/ML 3ML SQ SCH ×4 (06:01→20:47)
[2020-10-06 06:10] LABS: CREATININE 0.7 mg/dL (0.5-1.5); POTASSIUM 3.6 mmol/L (3.5-5.1)
[2020-10-06 06:17] LABS: INR 2.54 (0.85-1.15); PROTHROMBIN TIME 25.4 SEC (9.6-11.6)
[2020-10-06] MEDS: FUROSEMIDE 20 MG TABLET PO SCH (08:55)
[2020-10-06] MEDS: SERTRALINE HCL 50 MG TABLET PO SCH (08:55)
[2020-10-06] MEDS: ASPIRIN 81MG CHEW TAB PO SCH (08:58)
[2020-10-06] MEDS: ATENOLOL 25 MG TABLET PO SCH ×2 (09:00→19:57)
[2020-10-06] MEDS: LOSARTAN 50 MG TABLET PO SCH (09:03)
[2020-10-06] MEDS: WARFARIN SODIUM 2 MG TAB PO SCH (17:11)
[2020-10-06] MEDS: SIMVASTATIN 20 MG TABLET PO SCH (20:45)
[2020-10-06] MEDS: INSULIN GLARGINE 100 UNITS/ML 10 ML VIAL SQ SCH (20:47)
[2020-10-07 04:03] VITALS: BP 121/64
[2020-10-07] MEDS: MEROPENEM 1 GM VIAL IVP SCH ×2 (05:07→12:45)
[2020-10-07] MEDS: INSULIN HUMULIN R 100 UNIT/ML 3ML SQ SCH ×3 (05:23→17:12)
[2020-10-07 05:36] LABS: BASOPHILS % (AUTO) 0.5 % (0.0-5.0); EOSINOPHILS % (AUTO) 1.1 % (0.0-8.0); HEMATOCRIT 34.4 % (36-48); LYMPHOCYTES % (AUTO) 39.4 % (21.0-51.0); MEAN CORPUSCULAR HEMOGLOBIN 26.6 pg (27.0-33.0); MEAN CORPUSCULAR VOLUME 83.3 fL (79-99); MONOCYTES % (AUTO) 6.2 % (3.0-13.0); NEUTROPHILS % (AUTO) 52.6 % (40.0-77.0); PLATELET COUNT (AUTO) 202 K/uL (130-400); RED BLOOD CELL COUNT(AUTO) 4.13 MIL/uL (4.00-5.50); RED CELL DISTRIBUTION WIDTH 13.9 % (11.0-15.5); WHITE BLOOD COUNT (AUTO) 6.3 K/uL (4.8-10.8)
[2020-10-07 05:49] LABS: CREATININE 0.6 mg/dL (0.5-1.5); POTASSIUM 3.7 mmol/L (3.5-5.1)
[2020-10-07 08:00] VITALS: BP 105/59
[2020-10-07] MEDS: FUROSEMIDE 20 MG TABLET PO SCH (08:33)
[2020-10-07] MEDS: ASPIRIN 81MG CHEW TAB PO SCH (08:33)
[2020-10-07] MEDS: SERTRALINE HCL 50 MG TABLET PO SCH (08:33)
[2020-10-07] MEDS: ATENOLOL 25 MG TABLET PO SCH (08:34)
[2020-10-07] MEDS ORDERED: LOSARTAN 50 MG TABLET PO SCH (09:00)
[2020-10-07 12:23] VITALS: BP 124/46
[2020-10-07] MEDS ORDERED: INVANZ 1GM+NS 50ML IVPB 50 ML IV SCH ×2 (13:15→16:00)
[2020-10-07] MEDS ORDERED: PHARMACY COMMUNICATION MISC SCH (16:00)
[2020-10-07 16:09] VITALS: BP 110/52
[2021-02-04] MEDS ORDERED: CLIN-141 PO (10:56)
== END 2020-10-07 18:50 | disposition home health service (06) | DRG 690 ==
LOC: EDH 18:34 → EDHIP 09-30 09:03 → 4AH 09-30 13:48
PROVIDERS: ADMIT Internal Medicine; ATTEND Internal Medicine
PROC: 02HV33Z Insertion of Infusion Device into Superior Vena Cava, Percutaneous Approach (ICD-10-PCS; principal; 2020-10-02)
DX: N39.0 Urinary tract infection, site not specified (principal); E87.1 Hypo-osmolality and hyponatremia; Z16.24 Resistance to multiple antibiotics; Z68.41 Body mass index [BMI] 40.0-44.9, adult; I71.4 Abdominal aortic aneurysm, without rupture; B96.20 Unspecified Escherichia coli [E. coli] as the cause of diseases classified elsewhere; E11.65 Type 2 diabetes mellitus with hyperglycemia; E66.9 Obesity, unspecified; E87.6 Hypokalemia; I10 Essential (primary) hypertension; J45.909 Unspecified asthma, uncomplicated; Z79.01 Long term (current) use of anticoagulants; Z83.3 Family history of diabetes mellitus; Z95.2 Presence of prosthetic heart valve
CPT/HCPCS: 36415; 71275; 74174; 80048; 80053; 81001; 82948; 83036; 83690; 84145; 84443; 84484; 85025; 85610; 85730; 87040; 87077; 87088; 87186; 93005; C1751; C1894; G0378; J0696; J1335; J1815; J2185; J7030; Q9967

== ENCOUNTER 2021-02-04 07:06 | Emergency (ER) | payer OTHER ==
[~2021-02-04] VITALS: Ht 175.3 cm; Wt 122.5 kg
[2021-02-04 07:08] VITALS: BP 163/56
[2021-02-04 08:25] LABS: BASOPHILS % (AUTO) 0.5 % (0.0-5.0); EOSINOPHILS % (AUTO) 0.8 % (0.0-8.0); HEMATOCRIT 38.2 % (36-48); LYMPHOCYTES % (AUTO) 25.6 % (21.0-51.0); MEAN CORPUSCULAR HEMOGLOBIN 26.5 pg (27.0-33.0); MEAN CORPUSCULAR HGB CONC 30.9 g/dL (32.0-36.0); MEAN CORPUSCULAR VOLUME 85.8 fL (79-99); MONOCYTES % (AUTO) 6.1 % (3.0-13.0); NEUTROPHILS % (AUTO) 66.7 % (40.0-77.0); PLATELET COUNT (AUTO) 230 K/uL (130-400); RED BLOOD CELL COUNT(AUTO) 4.45 MIL/uL (4.00-5.50); RED CELL DISTRIBUTION WIDTH 14.5 % (11.0-15.5); WHITE BLOOD COUNT (AUTO) 7.4 K/uL (4.8-10.8)
[2021-02-04 08:51] LABS: ALBUMIN 3.8 g/dL (3.5-5.0); CREATININE 0.8 mg/dL (0.5-1.5)
[2021-02-04 08:52] LABS: BILIRUBIN,TOTAL 0.3 mg/dL (0.2-1.0); TOTAL PROTEIN, SERUM 8.1 g/dL (6.0-8.3)
[2021-02-04] MEDS ORDERED: CLINDAMYCIN 150 MG CAP PO SCH (09:00)
[2021-02-04 10:28] VITALS: BP 142/52
[2021-02-04] MEDS ORDERED: CLIN300C10 PO (10:56)
[2021-02-04 13:44] VITALS: BP 132/51
== END 2021-02-04 13:44 | disposition home or self-care (01) ==
LOC: EDH 07:06
DX: L02.32 Furuncle of buttock (principal); F41.9 Anxiety disorder, unspecified; F32.9 Major depressive disorder, single episode, unspecified; I10 Essential (primary) hypertension; E10.9 Type 1 diabetes mellitus without complications; Z79.899 Other long term (current) drug therapy; Z79.82 Long term (current) use of aspirin
CPT/HCPCS: 36415; 80053; 85025

== ENCOUNTER 2021-11-05 15:48 | Emergency (ER) | payer OTHER ==
[~2021-11-05] VITALS: Ht 177.8 cm; Wt 117.9 kg
[~2021-11-05 15:48] MED LIST changes: +CLIN-141 PO
[2021-11-05 15:51] VITALS: BP 137/54
[2021-11-05 16:15] LABS: BASOPHILS % (AUTO) 0.3 % (0.0-5.0); EOSINOPHILS % (AUTO) 0.4 % (0.0-8.0); HEMATOCRIT 36.2 % (36-48); LYMPHOCYTES % (AUTO) 25.3 % (21.0-51.0); MEAN CORPUSCULAR HEMOGLOBIN 26.9 pg (27.0-33.0); MONOCYTES % (AUTO) 6.8 % (3.0-13.0); NEUTROPHILS % (AUTO) 66.9 % (40.0-77.0); PLATELET COUNT (AUTO) 236 K/uL (130-400); RED BLOOD CELL COUNT(AUTO) 4.31 MIL/uL (4.00-5.50); RED CELL DISTRIBUTION WIDTH 14.6 % (11.0-15.5); WHITE BLOOD COUNT (AUTO) 9.5 K/uL (4.8-10.8)
[2021-11-05] MEDS ORDERED: HYDROCODONE/ACETAMINOPHEN 5/325 MG TAB PO ONE (16:30)
[2021-11-05] MEDS ORDERED: CLINDAMYCIN IVPB 600MG/50ML 50 ML IV SCH (16:30)
[2021-11-05 16:32] LABS: CREATININE 0.9 mg/dL (0.5-1.5); POTASSIUM 4.3 mmol/L (3.5-5.1)
[2021-11-05 16:36] LABS: ALBUMIN 3.6 g/dL (3.5-5.0); BILIRUBIN,TOTAL 0.4 mg/dL (0.2-1.0); TOTAL PROTEIN, SERUM 7.7 g/dL (6.0-8.3); URIC ACID 4.7 mg/dL (2.6-7.2)
[2021-11-05] MEDS ORDERED: CLIN-141 PO (17:03)
== END 2021-11-05 17:18 | disposition home or self-care (01) ==
LOC: EDH 15:48
DX: S90.412A Abrasion, left great toe, initial encounter (principal); L03.032 Cellulitis of left toe; I10 Essential (primary) hypertension; I25.10 Atherosclerotic heart disease of native coronary artery without angina pectoris; Z79.82 Long term (current) use of aspirin; Z79.899 Other long term (current) drug therapy; Z95.1 Presence of aortocoronary bypass graft; Z95.2 Presence of prosthetic heart valve; E66.9 Obesity, unspecified; Z68.37 Body mass index [BMI] 37.0-37.9, adult; X58.XXXA Exposure to other specified factors, initial encounter; Y93.89 Activity, other specified; Y92.89 Other specified places as the place of occurrence of the external cause; Y99.8 Other external cause status
CPT/HCPCS: 36415; 73660; 80053; 83605; 84550; 85025; 96374; 99284; J3490

== ENCOUNTER 2022-01-01 07:12 | Emergency (ER) | payer OTHER ==
[~2022-01-01] VITALS: Ht 175.3 cm; Wt 113.4 kg
[2022-01-01 08:07] LABS: APPEARANCE,URINE Clear (CLEAR); BILIRUBIN,URINE Negative (NEGATIVE); COLOR,URINE Yellow (YELLOW); GLUCOSE, URINE (UA) Negative (NEGATIVE); KETONES,URINE Negative (NEGATIVE); LEUKOCYTE ESTERASE ,URINE Moderate (NEGATIVE); NITRATE,URINE Negative (NEGATIVE); OCCULT BLOOD,URINE Moderate (NEGATIVE); PH,URINE 5.5 (5.0-8.0); PROTEIN,URINE Negative (NEGATIVE); UROBILINOGEN,URINE 0.2 mg/dL (0.2-1.0)
[2022-01-01 08:13] LABS: BASOPHILS % (AUTO) 0.4 % (0.0-5.0); HEMATOCRIT 36.1 % (36-48); LYMPHOCYTES % (AUTO) 32.3 % (21.0-51.0); MEAN CORPUSCULAR HEMOGLOBIN 26.5 pg (27.0-33.0); MEAN CORPUSCULAR VOLUME 85.3 fL (79-99); PLATELET COUNT (AUTO) 212 K/uL (130-400); RED BLOOD CELL COUNT(AUTO) 4.23 MIL/uL (4.00-5.50); RED CELL DISTRIBUTION WIDTH 14.6 % (11.0-15.5); WHITE BLOOD COUNT (AUTO) 6.7 K/uL (4.8-10.8)
[2022-01-01 08:19] LABS: ALBUMIN 3.9 g/dL (3.5-5.0); BILIRUBIN,TOTAL 0.4 mg/dL (0.2-1.0); CREATININE 0.8 mg/dL (0.5-1.5); POTASSIUM 3.7 mmol/L (3.5-5.1); TOTAL PROTEIN, SERUM 8.1 g/dL (6.0-8.3)
[2022-01-01 08:20] LABS: INR 1.98 (0.85-1.15); PROTHROMBIN TIME 20.8 SEC (9.6-11.6)
[2022-01-01 08:21] LABS: PARTIAL THROMBOPLASTIN TIME 41.6 SEC (26.3-35.5)
[2022-01-01 08:26] LABS: BACTERIA,URINE Moderate /HPF (None Seen); RBC,URINE 0-1 /HPF (0-1)
[2022-01-01 08:29] LABS: B-TYPE NATRIURETIC PEPTIDE 33 pg/mL (0-100)
[2022-01-01] MEDS ORDERED: CEFTRIAXONE 1G VIAL IVP ONE (09:00)
[2022-01-01] MEDS ORDERED: 0.9% NACL 500ML IV.SOLN 500 ML IV ONE (09:00)
[2022-01-01] MEDS ORDERED: CEPH500B PO (10:05)
[2022-01-01 10:22] VITALS: BP 137/46
== END 2022-01-01 10:50 | disposition home or self-care (01) ==
LOC: EDH 07:12
DX: N39.0 Urinary tract infection, site not specified (principal); E11.9 Type 2 diabetes mellitus without complications; I10 Essential (primary) hypertension; I25.10 Atherosclerotic heart disease of native coronary artery without angina pectoris; Z79.82 Long term (current) use of aspirin; Z79.899 Other long term (current) drug therapy; Z95.1 Presence of aortocoronary bypass graft
CPT/HCPCS: 36415; 71045; 80053; 81001; 83880; 84484; 85025; 85610; 85730; 87077; 87088; 87186; 93005; 96374; 99285; J0696

== ENCOUNTER 2022-04-26 16:09 | Emergency (ER) | payer OTHER ==
[~2022-04-26 16:09] MED LIST changes: +CEPH500B PO
[2022-04-26 16:47] LABS: APPEARANCE,URINE CLEAR (CLEAR); BILIRUBIN,URINE NEGATIVE (NEGATIVE); COLOR,URINE YELLOW (YELLOW); GLUCOSE, URINE (UA) NEGATIVE (NEGATIVE); KETONES,URINE NEGATIVE (NEGATIVE); LEUKOCYTE ESTERASE ,URINE TRACE Leu/uL (NEGATIVE); NITRATE,URINE POSITIVE (NEGATIVE); OCCULT BLOOD,URINE MODERATE (NEGATIVE); PROTEIN,URINE NEGATIVE (NEGATIVE); UROBILINOGEN,URINE 0.2 mg/dL (0.2-1.0)
[2022-04-26 17:09] LABS: BASOPHILS % (AUTO) 0.6 % (0.0-5.0); EOSINOPHILS % (AUTO) 0.3 % (0.0-8.0); LYMPHOCYTES % (AUTO) 23.3 % (21.0-51.0); MEAN CORPUSCULAR HEMOGLOBIN 26.1 pg (27.0-33.0); MEAN CORPUSCULAR HGB CONC 31.4 g/dL (32.0-36.0); MEAN CORPUSCULAR VOLUME 83.1 fL (79-99); MONOCYTES % (AUTO) 5.4 % (3.0-13.0); NEUTROPHILS % (AUTO) 70.1 % (40.0-77.0); PLATELET COUNT (AUTO) 282 K/uL (130-400); RED BLOOD CELL COUNT(AUTO) 4.33 MIL/uL (4.00-5.50); RED CELL DISTRIBUTION WIDTH 14.6 % (11.0-15.5)
[2022-04-26 17:16] LABS: POTASSIUM 3.6 mmol/L (3.5-5.1)
[2022-04-26 17:30] LABS: ALBUMIN 3.5 g/dL (3.5-5.0); TOTAL PROTEIN, SERUM 7.6 g/dL (6.0-8.3)
[2022-04-26 17:40] LABS: MUCUS,URINE Rare LPF (None Seen); RBC,URINE 0-1 /HPF (0-1); SQUAMOUS EPITHELIAL CELL,UR Rare /HPF (0-2); WBC,URINE 0-1 /HPF (0-1)
[2022-04-26 17:41] LABS: BACTERIA,URINE Moderate /HPF (None Seen)
[2022-04-26] MEDS ORDERED: CEPH500B PO (18:26)
[2022-04-26 18:40] VITALS: BP 141/58
== END 2022-04-26 18:52 | disposition home or self-care (01) ==
LOC: EDH 16:09
DX: N39.0 Urinary tract infection, site not specified (principal); E11.9 Type 2 diabetes mellitus without complications; I10 Essential (primary) hypertension; Z79.899 Other long term (current) drug therapy; Z79.82 Long term (current) use of aspirin; Z79.01 Long term (current) use of anticoagulants; Z98.890 Other specified postprocedural states
CPT/HCPCS: 36415; 80053; 81001; 84484; 85025; 87077; 87088; 87186; 93005

== ENCOUNTER 2022-12-23 19:19 | Inpatient (IN) | payer OTHER ==
[~2022-12-23] VITALS: Ht 182.9 cm; Wt 117.3 kg
[2022-12-24 00:50] LABS: BASOPHILS % (AUTO) 0.4 % (0.0-5.0); EOSINOPHILS % (AUTO) 0.5 % (0.0-8.0); HEMATOCRIT 39.9 % (36-48); LYMPHOCYTES % (AUTO) 39.9 % (21.0-51.0); MEAN CORPUSCULAR HEMOGLOBIN 26.7 pg (27.0-33.0); MEAN CORPUSCULAR HGB CONC 31.6 g/dL (32.0-36.0); MEAN CORPUSCULAR VOLUME 84.5 fL (79-99); MONOCYTES % (AUTO) 5.7 % (3.0-13.0); NEUTROPHILS % (AUTO) 53.1 % (40.0-77.0); PLATELET COUNT (AUTO) 194 K/uL (130-400); RED BLOOD CELL COUNT(AUTO) 4.72 MIL/uL (4.00-5.50); RED CELL DISTRIBUTION WIDTH 14.2 % (11.0-15.5); WHITE BLOOD COUNT (AUTO) 7.7 K/uL (4.8-10.8)
[2022-12-24 00:59] LABS: CREATININE 0.8 mg/dL (0.5-1.5); POTASSIUM 3.8 mmol/L (3.5-5.1)
[2022-12-24 01:00] LABS: INR 1.57 (0.85-1.15); PROTHROMBIN TIME 16.7 SEC (9.6-11.6)
[2022-12-24 01:01] LABS: PARTIAL THROMBOPLASTIN TIME 34.6 SEC (26.3-35.5)
[2022-12-24 01:05] LABS: ALBUMIN 4.4 g/dL (3.5-5.0); TOTAL PROTEIN, SERUM 8.5 g/dL (6.0-8.3)
[2022-12-24 01:34] LABS: B-TYPE NATRIURETIC PEPTIDE 24 pg/mL (0-100)
[2022-12-24 03:47] LABS: APPEARANCE,URINE CLOUDY (CLEAR); BILIRUBIN,URINE NEGATIVE (NEGATIVE); COLOR,URINE YELLOW (YELLOW); GLUCOSE, URINE (UA) NEGATIVE (NEGATIVE); KETONES,URINE NEGATIVE (NEGATIVE); LEUKOCYTE ESTERASE ,URINE 250 Leu/uL (NEGATIVE); NITRATE,URINE 2+ (NEGATIVE); OCCULT BLOOD,URINE MODERATE (NEGATIVE); PROTEIN,URINE NEGATIVE (NEGATIVE); UROBILINOGEN,URINE 0.2 mg/dL (0.2-1.0)
[2022-12-24] MEDS ORDERED: IOHEXOL 350 MG/ML 100ML INFUS..BTL IV ONE (03:52)
[2022-12-24 03:59] LABS: BACTERIA,URINE MANY /HPF (None Seen); MUCUS,URINE RARE LPF (None Seen); RBC,URINE 0-1 /HPF (0-1); SQUAMOUS EPITHELIAL CELL,UR FEW /HPF (0-2)
[2022-12-24] MEDS ORDERED: POTASSIUM CHLORIDE 20MEQ/100ML 100 ML IV PRN (05:30)
[2022-12-24] MEDS ORDERED: ACETAMINOPHEN 325 MG TAB PO PRN ×2 (05:30)
[2022-12-24] MEDS ORDERED: MORPHINE 4 MG SYG IV PRN (05:30)
[2022-12-24] MEDS ORDERED: POTASSIUM CHLORIDE 10% ELIXIR 20 MEQ/15 ML UDCUP PO PRN (05:30)
[2022-12-24] MEDS ORDERED: ONDANSETRON 4MG INJ IV PRN (05:30)
[2022-12-24] MEDS ORDERED: MORPHINE 2 MG SYG IV PRN (05:30)
[2022-12-24] MEDS: LACTATED RINGERS 1000ML 1,000 ML IV SCH ×2 (06:14→22:03)
[2022-12-24] MEDS ORDERED: CEFTRIAXONE 2GM VIAL ONE (06:16)
[2022-12-24] MEDS: CEFTRIAXONE 1G VIAL 2 GM in 0.9%NACL 100ML 100 ML IV SCH (06:18)
[2022-12-24] MEDS: ASPIRIN 81MG CHEW TAB PO SCH (08:57)
[2022-12-24] MEDS: INSULIN HUMULIN R 100 UNIT/ML 3ML SQ SCH ×4 (08:57→21:00)
[2022-12-24] MEDS: FAMOTIDINE 20MG TAB PO SCH ×2 (08:57→22:02)
[2022-12-24] MEDS ORDERED: ASPIRIN 81MG CHEW TAB PO SCH (09:00)
[2022-12-24] MEDS ORDERED: METF-444 PO (09:50)
[2022-12-24] MEDS ORDERED: SERT-440 PO (09:50)
[2022-12-24 19:00] VITALS: BP 147/65
[2022-12-24] MEDS ORDERED: LOSA50TA64 PO (19:58)
[2022-12-24] MEDS: ATORVASTATIN 40 MG TABLET PO SCH (22:02)
[2022-12-25] VITALS: BP 160/62
[2022-12-25 04:00] VITALS: BP 160/69
[2022-12-25 04:42] LABS: BASOPHILS % (AUTO) 0.4 % (0.0-5.0); EOSINOPHILS % (AUTO) 1.2 % (0.0-8.0); HEMATOCRIT 36.8 % (36-48); MEAN CORPUSCULAR HEMOGLOBIN 27.1 pg (27.0-33.0); MEAN CORPUSCULAR HGB CONC 31.5 g/dL (32.0-36.0); MONOCYTES % (AUTO) 6.9 % (3.0-13.0); NEUTROPHILS % (AUTO) 58.3 % (40.0-77.0); PLATELET COUNT (AUTO) 161 K/uL (130-400); RED BLOOD CELL COUNT(AUTO) 4.28 MIL/uL (4.00-5.50); RED CELL DISTRIBUTION WIDTH 14.4 % (11.0-15.5); WHITE BLOOD COUNT (AUTO) 5.6 K/uL (4.8-10.8)
[2022-12-25 05:01] LABS: CREATININE 0.7 mg/dL (0.5-1.5); MAGNESIUM 1.8 mg/dL (1.80-2.40); POTASSIUM 3.5 mmol/L (3.5-5.1)
[2022-12-25 05:20] LABS: HEMOGLOBIN A1C 8.8 % (4.0-6.0)
[2022-12-25] MEDS: KCL 20 MEQ ERTAB PO PRN ×2 (05:20→09:18)
[2022-12-25] MEDS: CEFTRIAXONE 1G VIAL 2 GM in 0.9%NACL 100ML 100 ML IV SCH (05:30)
[2022-12-25] MEDS ORDERED: CEFTRIAXONE 2GM VIAL ONE (05:36)
[2022-12-25] MEDS: INSULIN HUMULIN R 100 UNIT/ML 3ML SQ SCH ×4 (07:30→20:33)
[2022-12-25 08:00] VITALS: BP 150/70
[2022-12-25] MEDS: LACTATED RINGERS 1000ML 1,000 ML IV SCH (08:10)
[2022-12-25] MEDS: FAMOTIDINE 20MG TAB PO SCH ×2 (09:17→20:24)
[2022-12-25] MEDS: ASPIRIN 81MG CHEW TAB PO SCH (09:18)
[2022-12-25 12:00] VITALS: BP 155/79
[2022-12-25] MEDS ORDERED: SERTRALINE HCL 50 MG TABLET PO SCH (13:00)
[2022-12-25] MEDS ORDERED: PHARMACY COMMUNICATION MISC SCH (13:30)
[2022-12-25] MEDS: LOSARTAN 50 MG TABLET PO SCH (13:49)
[2022-12-25] MEDS: HEPARIN 5,000 UNIT VIAL SQ SCH ×2 (13:49→20:26)
[2022-12-25] MEDS ORDERED: WARFARIN SODIUM 6 MG PO SCH (14:00)
[2022-12-25] MEDS ORDERED: CEFTRIAXONE 2GM VIAL IVPB SCH (16:00)
[2022-12-25] MEDS ORDERED: WARFARIN SODIUM 7.5 MG TAB PO SCH (17:00)
[2022-12-25 18:44] VITALS: BP 139/63
[2022-12-25 20:00] VITALS: BP 145/64
[2022-12-25] MEDS: ASPIRIN 81 MG EC TAB PO SCH (20:24)
[2022-12-25] MEDS: SIMVASTATIN 20 MG TABLET PO SCH (20:24)
[2022-12-25] MEDS: ATENOLOL 25 MG TABLET PO SCH (20:24)
[2022-12-25] MEDS: HYDROXYZINE 25 MG TABLET PO SCH (20:30)
[2022-12-25] MEDS: ATORVASTATIN 40 MG TABLET PO SCH (20:31)
[2022-12-25] MEDS: SERTRALINE HCL 50 MG TABLET PO SCH (20:31)
[2022-12-26] VITALS (7 sets, daily range): BP systolic 100–146; BP diastolic 51–72
[2022-12-26] MEDS: HEPARIN 5,000 UNIT VIAL SQ SCH ×3 (04:15→20:19)
[2022-12-26 04:32] LABS: BASOPHILS % (AUTO) 0.6 % (0.0-5.0); EOSINOPHILS % (AUTO) 1.3 % (0.0-8.0); HEMATOCRIT 35.9 % (36-48); LYMPHOCYTES % (AUTO) 38.1 % (21.0-51.0); MEAN CORPUSCULAR HGB CONC 31.2 g/dL (32.0-36.0); MEAN CORPUSCULAR VOLUME 86.5 fL (79-99); MONOCYTES % (AUTO) 8.5 % (3.0-13.0); NEUTROPHILS % (AUTO) 51.1 % (40.0-77.0); PLATELET COUNT (AUTO) 179 K/uL (130-400); RED BLOOD CELL COUNT(AUTO) 4.15 MIL/uL (4.00-5.50); RED CELL DISTRIBUTION WIDTH 14.3 % (11.0-15.5); WHITE BLOOD COUNT (AUTO) 5.4 K/uL (4.8-10.8)
[2022-12-26 04:41] LABS: INR 1.72 (0.85-1.15); PROTHROMBIN TIME 18.2 SEC (9.6-11.6)
[2022-12-26 04:53] LABS: ALBUMIN 3.7 g/dL (3.5-5.0); CREATININE 0.8 mg/dL (0.5-1.5); MAGNESIUM 1.7 mg/dL (1.80-2.40); POTASSIUM 3.9 mmol/L (3.5-5.1); TOTAL PROTEIN, SERUM 7.2 g/dL (6.0-8.3)
[2022-12-26] MEDS: MAGNESIUM 2GM PREMIX 50ML 50 ML IV PRN (04:59)
[2022-12-26] MEDS: INSULIN HUMULIN R 100 UNIT/ML 3ML SQ SCH ×4 (06:19→20:18)
[2022-12-26] MEDS: ATENOLOL 25 MG TABLET PO SCH ×2 (09:00→20:09)
[2022-12-26] MEDS: ASPIRIN 81MG CHEW TAB PO SCH (09:51)
[2022-12-26] MEDS: HYDROXYZINE 25 MG TABLET PO SCH ×3 (09:51→20:16)
[2022-12-26] MEDS: FUROSEMIDE 20 MG TABLET PO SCH (09:52)
[2022-12-26] MEDS: FAMOTIDINE 20MG TAB PO SCH ×2 (09:52→20:08)
[2022-12-26] MEDS: CEFTRIAXONE 2GM VIAL IVPB SCH (09:54)
[2022-12-26] MEDS: LOSARTAN 50 MG TABLET PO SCH (14:54)
[2022-12-26] MEDS ORDERED: WARFARIN SODIUM 7.5 MG TAB PO SCH (17:00)
[2022-12-26] MEDS: WARFARIN SODIUM 5 MG TAB PO SCH (17:52)
[2022-12-26] MEDS: WARFARIN SODIUM 2 MG TAB PO SCH (17:53)
[2022-12-26] MEDS: SERTRALINE HCL 50 MG TABLET PO SCH (20:09)
[2022-12-26] MEDS: SIMVASTATIN 20 MG TABLET PO SCH (20:09)
[2022-12-26] MEDS: ASPIRIN 81 MG EC TAB PO SCH (20:09)
[2022-12-26] MEDS: ATORVASTATIN 40 MG TABLET PO SCH (20:16)
[2022-12-27] MEDS: HEPARIN 5,000 UNIT VIAL SQ SCH (04:19)
[2022-12-27 04:30] VITALS: BP 105/55
[2022-12-27 05:15] LABS: BASOPHILS % (AUTO) 0.3 % (0.0-5.0); EOSINOPHILS % (AUTO) 1.3 % (0.0-8.0); HEMATOCRIT 35.8 % (36-48); LYMPHOCYTES % (AUTO) 35.5 % (21.0-51.0); MEAN CORPUSCULAR HEMOGLOBIN 27.1 pg (27.0-33.0); MEAN CORPUSCULAR HGB CONC 31.6 g/dL (32.0-36.0); MEAN CORPUSCULAR VOLUME 85.9 fL (79-99); MONOCYTES % (AUTO) 7.7 % (3.0-13.0); NEUTROPHILS % (AUTO) 54.7 % (40.0-77.0); PLATELET COUNT (AUTO) 176 K/uL (130-400); RED BLOOD CELL COUNT(AUTO) 4.17 MIL/uL (4.00-5.50); RED CELL DISTRIBUTION WIDTH 14.4 % (11.0-15.5); WHITE BLOOD COUNT (AUTO) 5.9 K/uL (4.8-10.8)
[2022-12-27] MEDS: INSULIN HUMULIN R 100 UNIT/ML 3ML SQ SCH ×3 (05:27→16:30)
[2022-12-27 05:29] LABS: INR 1.86 (0.85-1.15); PROTHROMBIN TIME 19.6 SEC (9.6-11.6)
[2022-12-27 05:40] LABS: ALBUMIN 3.7 g/dL (3.5-5.0); CREATININE 0.9 mg/dL (0.5-1.5); MAGNESIUM 1.9 mg/dL (1.80-2.40); POTASSIUM 3.5 mmol/L (3.5-5.1); TOTAL PROTEIN, SERUM 7.3 g/dL (6.0-8.3)
[2022-12-27] MEDS: MAGNESIUM 2GM PREMIX 50ML 50 ML IV PRN (06:14)
[2022-12-27 08:00] VITALS: BP 128/57
[2022-12-27] MEDS ORDERED: CEFU500T67 PO (09:00)
[2022-12-27] MEDS: ATENOLOL 25 MG TABLET PO SCH (09:43)
[2022-12-27] MEDS: HYDROXYZINE 25 MG TABLET PO SCH (09:44)
[2022-12-27] MEDS: FAMOTIDINE 20MG TAB PO SCH (09:44)
[2022-12-27] MEDS: FUROSEMIDE 20 MG TABLET PO SCH (09:44)
[2022-12-27] MEDS: ASPIRIN 81MG CHEW TAB PO SCH (09:44)
[2022-12-27] MEDS: CEFTRIAXONE 2GM VIAL IVPB SCH (09:44)
[2022-12-27 12:00] VITALS: BP 133/52
[2022-12-27 16:00] VITALS: BP 133/63
[2022-12-27] MEDS: WARFARIN SODIUM 5 MG TAB PO SCH (17:37)
[2022-12-27] MEDS: WARFARIN SODIUM 2 MG TAB PO SCH (17:37)
== END 2022-12-27 18:05 | disposition home or self-care (01) | DRG 69 ==
LOC: EDH 19:19 → EDHIP 12-24 05:20 → 4DH 12-24 18:46
PROVIDERS: ADMIT Internal Medicine; ATTEND Internal Medicine
DX: G45.9 Transient cerebral ischemic attack, unspecified (principal); I71.00 Dissection of unspecified site of aorta; N39.0 Urinary tract infection, site not specified; E11.9 Type 2 diabetes mellitus without complications; E78.00 Pure hypercholesterolemia, unspecified; I10 Essential (primary) hypertension; E66.9 Obesity, unspecified; B96.89 Other specified bacterial agents as the cause of diseases classified elsewhere; Z81.8 Family history of other mental and behavioral disorders; Z90.710 Acquired absence of both cervix and uterus; Z68.35 Body mass index [BMI] 35.0-35.9, adult; Z95.2 Presence of prosthetic heart valve; Z82.5 Family history of asthma and other chronic lower respiratory diseases; Z83.3 Family history of diabetes mellitus; Z82.49 Family history of ischemic heart disease and other diseases of the circulatory system; Z79.82 Long term (current) use of aspirin; Z79.899 Other long term (current) drug therapy
CPT/HCPCS: 36415; 70450; 70496; 70498; 71045; 80048; 80053; 81001; 82550; 82948; 83036; 83721; 83735; 83880; 84100; 84484; 85025; 85610; 85730; 87077; 87088; 87186; 92522; 92610; 93005; 93880; 97039; G0378; J0696; J1644; J1815; J3475; J7120; Q9967

== ENCOUNTER 2023-06-29 01:57 | Emergency (ER) | payer OTHER ==
[~2023-06-29] VITALS: Ht 177.8 cm; Wt 113.4 kg
[~2023-06-29 01:57] MED LIST changes: +ACET-2247 PO; -ALBUTEROL SULF IH; -CEPH500B PO; -CLIN-141 PO; -FLUT16H NS; +METF-444 PO; -OMEG-148 PO
[2023-06-29 02:21] LABS: BASOPHILS # (AUTO) 0.02 K/uL (0.00-0.20); BASOPHILS % (AUTO) 0.3 % (0.0-5.0); EOSINOPHILS # (AUTO) 0.08 K/uL (0.00-0.70); IMMATURE GRANULOCYTE ABSOLUTE 0.03 K/uL (0-1); LYMPHOCYTES # (AUTO) 2.9 K/uL (1.0-4.8); MEAN CORPUSCULAR HEMOGLOBIN 26.6 pg (27.0-33.0); MEAN CORPUSCULAR HGB CONC 30.8 g/dL (32.0-36.0); MEAN CORPUSCULAR VOLUME 86.3 fL (79-99); MONOCYTES # (AUTO) 0.6 K/uL (0.1-1.0); MONOCYTES % (AUTO) 7.2 % (3.0-13.0); NEUTROPHILS # (AUTO) 4.2 K/uL (1.8-7.7); NEUTROPHILS % (AUTO) 54.1 % (40.0-77.0); PLATELET COUNT (AUTO) 224 K/uL (130-400); RED BLOOD CELL COUNT(AUTO) 4.17 MIL/uL (4.00-5.50); RED CELL DISTRIBUTION WIDTH 14.7 % (11.0-15.5); WHITE BLOOD COUNT (AUTO) 7.8 K/uL (4.8-10.8)
[2023-06-29 02:31] LABS: CREATININE 0.9 mg/dL (0.5-1.5); POTASSIUM 3.7 mmol/L (3.5-5.1)
[2023-06-29 02:34] LABS: INR 1.77 (0.85-1.15); PROTHROMBIN TIME 19.8 SEC (9.6-11.6)
[2023-06-29 02:35] LABS: PARTIAL THROMBOPLASTIN TIME 42.6 SEC (26.3-35.5)
[2023-06-29 02:38] LABS: ALBUMIN 3.6 g/dL (3.5-5.0); BILIRUBIN,TOTAL 0.4 mg/dL (0.2-1.0); TOTAL PROTEIN, SERUM 7.8 g/dL (6.0-8.3)
[2023-06-29 03:33] VITALS: BP 127/51; PULSE 70; RESP 16; O2SAT 98
[2023-06-29 03:42] LABS: APPEARANCE,URINE CLEAR (CLEAR); BILIRUBIN,URINE NEGATIVE (NEGATIVE); COLOR,URINE COLORLESS (YELLOW); GLUCOSE, URINE (UA) NEGATIVE (NEGATIVE); KETONES,URINE NEGATIVE (NEGATIVE); LEUKOCYTE ESTERASE ,URINE NEGATIVE Leu/uL (NEGATIVE); NITRATE,URINE NEGATIVE (NEGATIVE); PROTEIN,URINE NEGATIVE (NEGATIVE); UROBILINOGEN,URINE 0.2 mg/dL (0.2-1.0)
[2023-06-29 03:45] LABS: ADD UA MICROSCOPIC NO; OCCULT BLOOD,URINE NEGATIVE (NEGATIVE)
== END 2023-06-29 04:08 | disposition home or self-care (01) ==
LOC: EDH 01:57
DX: Q87.40 Marfan syndrome, unspecified (principal); R00.2 Palpitations; R06.02 Shortness of breath; I10 Essential (primary) hypertension; E11.9 Type 2 diabetes mellitus without complications; Z79.84 Long term (current) use of oral hypoglycemic drugs; Z79.899 Other long term (current) drug therapy; Z90.710 Acquired absence of both cervix and uterus
CPT/HCPCS: 36415; 71045; 80053; 81003; 82550; 84484; 85025; 85610; 85730; 93005

== ENCOUNTER 2024-05-15 10:15 | Emergency (ER) | payer OTHER ==
[~2024-05-15] VITALS: Ht 177.8 cm; Wt 117.9 kg
[2024-05-15 10:16] VITALS: BP 154/86; PULSE 69; RESP 16; TEMP 98.6
[2024-05-15] MEDS: FAMOTIDINE 20MG VIAL IV ONE (10:48)
[2024-05-15] MEDS: DiphenhydrAMINE HCL 50 MG/ML VIAL IV ONE (10:48)
[2024-05-15] MEDS: Solu-medROL 125MG VIAL IVP ONE (10:48)
[2024-05-15] MEDS ORDERED: DIPH-1242 PO (11:28)
[2024-05-15] MEDS ORDERED: FAMO-136 PO (11:28)
[2024-05-16] MEDS ORDERED: SULF1TAB42 PO (21:18)
== END 2024-05-15 11:41 | disposition home or self-care (01) ==
LOC: EDH 10:15
DX: L25.8 Unspecified contact dermatitis due to other agents (principal); T37.8X5A Adverse effect of other specified systemic anti-infectives and antiparasitics, initial encounter; T37.3X5A Adverse effect of other antiprotozoal drugs, initial encounter; E11.9 Type 2 diabetes mellitus without complications; I10 Essential (primary) hypertension; Q87.40 Marfan syndrome, unspecified; Z79.82 Long term (current) use of aspirin; Z79.899 Other long term (current) drug therapy; Z86.73 Personal history of transient ischemic attack (TIA), and cerebral infarction without residual deficits; Z90.710 Acquired absence of both cervix and uterus; Z95.2 Presence of prosthetic heart valve; Y92.89 Other specified places as the place of occurrence of the external cause
CPT/HCPCS: 99284; 96374; 96375; J1200; J3490; J2919

== ENCOUNTER 2024-05-16 15:40 | Emergency (ER) | payer OTHER ==
[~2024-05-16] VITALS: Ht 177.8 cm; Wt 108.9 kg
[~2024-05-16 15:40] MED LIST changes: +DIPH-1242 PO; +FAMO-136 PO
[2024-05-16 17:54] LABS: BASOPHILS # (AUTO) 0.02 K/uL (0.00-0.20); BASOPHILS % (AUTO) 0.2 % (0.0-5.0); EOSINOPHILS # (AUTO) 0.03 K/uL (0.00-0.70); EOSINOPHILS % (AUTO) 0.3 % (0.0-8.0); HEMATOCRIT 38.2 % (36-48); IMMATURE GRANULOCYTE ABSOLUTE 0.06 K/uL (0-1); LYMPHOCYTES # (AUTO) 2.6 K/uL (1.0-4.8); LYMPHOCYTES % (AUTO) 26.7 % (21.0-51.0); MEAN CORPUSCULAR HEMOGLOBIN 26.7 pg (27.0-33.0); MEAN CORPUSCULAR HGB CONC 31.4 g/dL (32.0-36.0); MEAN CORPUSCULAR VOLUME 85.1 fL (79-99); MONOCYTES # (AUTO) 0.7 K/uL (0.1-1.0); MONOCYTES % (AUTO) 6.8 % (3.0-13.0); NEUTROPHILS # (AUTO) 6.4 K/uL (1.8-7.7); NEUTROPHILS % (AUTO) 65.4 % (40.0-77.0); PLATELET COUNT (AUTO) 228 K/uL (130-400); RED BLOOD CELL COUNT(AUTO) 4.49 MIL/uL (4.00-5.50); RED CELL DISTRIBUTION WIDTH 14.1 % (11.0-15.5); WHITE BLOOD COUNT (AUTO) 9.7 K/uL (4.8-10.8)
[2024-05-16 18:09] VITALS: BP 154/66; PULSE 49; RESP 18; TEMP 97.1; O2SAT 99
[2024-05-16 18:11] LABS: CREATININE 1.3 mg/dL (0.5-1.0); POTASSIUM 3.9 mmol/L (3.5-5.1)
[2024-05-16] MEDS: INSULIN humuLIN R 100 UNIT/ML 3ML IV ONE (18:45)
[2024-05-16] MEDS: 0.9%NACL 1000ML 1,000 ML IV ONE (18:46)
[2024-05-16 19:01] LABS: APPEARANCE,URINE CLOUDY (CLEAR); BILIRUBIN,URINE NEGATIVE (NEGATIVE); COLOR,URINE LIGHT-YELLOW (YELLOW); GLUCOSE, URINE (UA) >=1000 mg/dL (NEGATIVE); KETONES,URINE NEGATIVE (NEGATIVE); LEUKOCYTE ESTERASE ,URINE 500 Leu/uL (NEGATIVE); NITRATE,URINE 2+ (NEGATIVE); OCCULT BLOOD,URINE SMALL (NEGATIVE); PH,URINE 5.5 (5.0-8.0); PROTEIN,URINE NEGATIVE (NEGATIVE); UROBILINOGEN,URINE 0.2 mg/dL (0.2-1.0)
[2024-05-16 19:15] LABS: ADD UA MICROSCOPIC YES
[2024-05-16 19:21] LABS: BACTERIA,URINE RARE /HPF (None Seen); MUCUS,URINE RARE LPF (None Seen); RBC,URINE 26-50 /HPF (0-1); SQUAMOUS EPITHELIAL CELL,UR FEW /HPF (0-2); WBC,URINE 51-100 /HPF (0-1); YEAST,URINE BUDDING FEW /HPF (None Seen)
[2024-05-16] MEDS: cefTRIAXone 1G VIAL IVPB ONE (19:58)
[2024-05-16] MEDS: DiphenhydrAMINE HCL 50 MG/ML VIAL IV ONE (19:58)
[2024-05-16] MEDS: FAMOTIDINE 20MG VIAL IV ONE (19:58)
[2024-05-16] MEDS ORDERED: SULF1TAB42 PO (21:18)
== END 2024-05-16 21:18 | disposition home or self-care (01) ==
LOC: EDH 15:40
DX: E11.65 Type 2 diabetes mellitus with hyperglycemia (principal); I10 Essential (primary) hypertension; Z88.1 Allergy status to other antibiotic agents; Z79.01 Long term (current) use of anticoagulants; Z79.899 Other long term (current) drug therapy; Z79.82 Long term (current) use of aspirin; Z98.890 Other specified postprocedural states
CPT/HCPCS: 99284; 96374; 96375; 80048; 85025; 87086 ×2; 87186; 82948; 82010; 81001; 36415; J1200; J3490; J0696

== ENCOUNTER 2024-08-01 10:16 | Emergency (ER) | payer OTHER ==
[~2024-08-01] VITALS: Ht 177.8 cm; Wt 113.4 kg
[~2024-08-01 10:16] MED LIST changes: +SULF1TAB42 PO
--- NOTE | 2024-08-01 10:28 | NUR ---
SEEN BY ELLIE NAVARRO IN TRIAGE
--- NOTE | 2024-08-01 10:41 | EKG ---
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
[2024-08-01 10:45] LABS: BASOPHILS # (AUTO) 0.02 K/uL (0.00-0.20); BASOPHILS % (AUTO) 0.3 % (0.0-5.0); EOSINOPHILS # (AUTO) 0.08 K/uL (0.00-0.70); EOSINOPHILS % (AUTO) 1.2 % (0.0-8.0); HEMATOCRIT 36.8 % (36-48); IMMATURE GRANULOCYTE ABSOLUTE 0.03 K/uL (0-1); LYMPHOCYTES % (AUTO) 30.5 % (21.0-51.0); MEAN CORPUSCULAR HEMOGLOBIN 26.7 pg (27.0-33.0); MEAN CORPUSCULAR VOLUME 86.2 fL (79-99); MONOCYTES # (AUTO) 0.3 K/uL (0.1-1.0); NEUTROPHILS # (AUTO) 4.2 K/uL (1.8-7.7); NEUTROPHILS % (AUTO) 62.5 % (40.0-77.0); PLATELET COUNT (AUTO) 240 K/uL (130-400); RED BLOOD CELL COUNT(AUTO) 4.27 MIL/uL (4.00-5.50); WHITE BLOOD COUNT (AUTO) 6.6 K/uL (4.8-10.8)
[2024-08-01 10:59] LABS: CREATININE 0.7 mg/dL (0.5-1.0)
[2024-08-01 11:06] LABS: B-TYPE NATRIURETIC PEPTIDE 99 pg/mL (0-100)
--- NOTE | 2024-08-01 11:27 | ERN ---
General Chief Complaint: Back Pain-No Injury Stated Complaint: RIB PAIN Time Seen by MD: 10:18 Time Seen by Midlevel: 10:18 Source: patient History of Present Illness Initial Comments Patient is a 58-year-old female with a past medical history of Marfan syndrome presenting to the emergency department with left upper back pain that started this morning after waking up. The pain is reproducible with certain movements. She does report heavy day of cleaning yesterday which she attributes the pain to however with her history she was concerned that maybe something was wrong with her lungs are heart. Denies any other symptoms at this time. Allergies: Coded Allergies: doxycycline (Unverified Allergy, Unknown, RASH, 05/16/24) Home Meds Active Scripts Sulfamethoxazole/Trimethoprim (Bactrim Ds Tablet) 800 Mg-160 Mg Tablet, 1 TAB PO BID for 7 Days, #14 TAB 0 Refills Prov:ELLIE NAVARRO 05/16/24 Diphenhydramine HCl (Benadryl) 25 Mg Cap, 25 MG PO BID for 5 Days, #10 CAP Prov:ELLIE NAVARRO 05/15/24 Famotidine (Pepcid) 20 Mg Tablet, 1 TAB PO BID for 5 Days, #10 TAB 0 Refills Prov:ELLIE NAVARRO 05/15/24 Reported Medications Acetaminophen (Tylenol) 325 Mg Tablet, 650 MG PO Q4HPRN PRN for MILD PAIN (1-3), TAB 01/28/23 Losartan Potassium (Losartan Potassium) 50 Mg Tablet, 50 MG PO 1400, TAB 12/24/22 Metformin HCl (Metformin HCl) 500 Mg Tablet, 500 MG PO BIDMEALS, TAB 12/24/22 Sertraline HCl (Sertraline HCl) 100 Mg Tablet, 2 TAB PO HS, TAB 12/24/22 Atenolol (Atenolol) 25 Mg Tablet, 25 MG PO BID, TAB 04/04/18 Pravastatin Sodium (Pravastatin Sodium) 20 Mg Tablet, 20 MG PO NOON, TAB 04/02/18 Aspirin (Aspir 81) 81 Mg Tablet.dr, 81 MG PO HS, TAB 04/02/18 Warfarin Sodium (Coumadin) 6 Mg Tablet, 6 MG PO DAILYDINNER, TAB 04/02/18 Furosemide (Furosemide) 20 Mg Tablet, 20 MG PO DAILY, TAB 11/02/17 Past Medical History Past Medical History: Hypertension, Other Medical History Other: MARFANS SYNDROME Past Surgical History: Other Surgical History Other: AORTIC VALVE Family History Family History: Negative Social History Social History: Negative, Lives with family, Other Female( History) History: Not Applicable ROS Dictation CONSTITUTIONAL: Negative except for HPI HEAD/FACE: Negative except for HPI EENT: Negative except for HPI RESPIRATORY: Negative except for HPI GASTROINTESTINAL/ABDOMINAL: Negative except for HPI GENITOURINARY: Negative except for HPI MUSCULOSKELETAL: Negative except for HPI INTEGUMENTARY: Negative except for HPI NEUROLOGICAL/PSYCH: Negative except for HPI HEMATOLOGIC/LYMPHATIC: Negative except for HPI All Systems Negative, Except as noted above. 13 point review of systems assessed and all negative except for above. Physical Exam Physical Exam Dictation Vital Signs reviewed General Appearance: Alert, oriented x 3, no acute distress, well developed, nourished. Head and Face: non-traumatic. Eyes: PERRL, pink conjunctivas, eyelid no trauma, anterior chamber with arcus senilis. Ears: Pinnas intact and no signs of trauma or erythema ear canals clear and no discharge TM no erythema Nose: No discharge, no bleeding. Oropharynx: Mouth normal, tongue pink, pharynx clear,no erythema, tonsils no exudates, no abscesses noted, mucous membrane moist Neck: Supple, non-tender, no thyromegaly, no masses, no JVD, no bruits Breast:Deferred Chest:No tenderness, no crepitus, no paradoxical movement, no retractions Lungs:Clear, well-ventilated, symmetric, no rales, no wheezing, no rhonchi, no stridor, good breath sounds bilaterally Heart: Regular rate, regular rhythm, no murmur, no gallops Vascular: no peripheral edema, Abdomen: Soft, positive bowel sounds, nondistended, no guarding, nontender, no rebound, no masses no hepatomegaly, no splenomegaly, no Hope's sign, no hernias. Rectal: Deferred Genital: Deferred Neurological: Normal speech, motor function intact, sensory function intact Musculoskeletal: Neck nontender, full range of motion, back nontender, full range of motion, Extremities: nontender, full range of motion Skin: Color pink, dry, no turgor, no rash, no lacerations, no abrasions, no contusions. Lymphatic: Deferred Results Laboratory and Microbiology Lab and Micro Result Laboratory Tests Test 08/01/24 10:38 White Blood Count 6.6 K/uL (4.8-10.8) Red Blood Count 4.27 MIL/uL (4.00-5.50) Hemoglobin 11.4 g/dL (12.0-16.0) L Hematocrit 36.8 % (36-48) Mean Corpuscular Volume 86.2 fL (79-99) Mean Corpuscular Hemoglobin 26.7 pg (27.0-33.0) L Mean Corpuscular Hemoglobin Concent 31.0 g/dL (32.0-36.0) L Red Cell Distribution Width 14.0 % (11.0-15.5) Platelet Count 240 K/uL (130-400) Mean Platelet Volume 10.2 fL (7.5-10.5) Immature Granulocyte % (Auto) 0.5 % (0-1) Neutrophils (%) (Auto) 62.5 % (40.0-77.0) Lymphocytes (%) (Auto) 30.5 % (21.0-51.0) Monocytes (%) (Auto) 5.0 % (3.0-13.0) Eosinophils (%) (Auto) 1.2 % (0.0-8.0) Basophils (%) (Auto) 0.3 % (0.0-5.0) Neutrophils # (Auto) 4.2 K/uL (1.8-7.7) Lymphocytes # (Auto) 2.0 K/uL (1.0-4.8) Monocytes # (Auto) 0.3 K/uL (0.1-1.0) Eosinophils # (Auto) 0.08 K/uL (0.00-0.70) Basophils # (Auto) 0.02 K/uL (0.00-0.20) Absolute Immature Granulocyte (auto 0.03 K/uL (0-1) Nucleated Red Blood Cells 0.0 % (0.0-0.19) Red Blood Cell Morphology ANISO 1+ Sodium Level 140 mmol/L (136-145) Potassium Level 4.0 mmol/L (3.5-5.1) Chloride Level 104 mmol/L (101-111) Carbon Dioxide Level 32 mmol/L (21-32) Blood Urea Nitrogen 14 mg/dL (7-18) Creatinine 0.7 mg/dL (0.5-1.0) Glomerular Filtration Rate Calc 101 mL/min (>90) Random Glucose 208 mg/dL (70-105) H Total Calcium 8.9 mg/dL (8.5-10.1) Troponin I High Sensitivity 6 ng/L (4-50) B-Type Natriuretic Peptide 99 pg/mL (0-100) Labs Reviewed?: Yes EKG/XRAY/US/CT/MRI EKG Comment Date: August 01, 2024 Time: 10:32 a.m. Ventricular rate:57 [place] interval:175 QRS duration:101 QT/QTc:456/443 EKG interpretation: Normal sinus rhythm with a ventricular rate of 57 beats per minute, no bundle branch blocks, no ST elevations Reviewed by ED Attending DIONNE MDM: Patient is a 58-year-old female with a past medical history of Marfan syndrome presenting to the emergency department with left upper back pain that started this morning after waking up. The pain is reproducible with certain movements. She does report heavy day of cleaning yesterday which she attributes the pain to however with her history she was concerned that maybe something was wrong with her lungs are heart. Denies any other symptoms at this time. On physical examination patient is in no acute respiratory distress. O2 saturation is 100% on room air. There is some reproducible pain to the left upper lateral back area. She was bilateral breath sounds present with no wheezing, rhonchi or rales. Given her history of Marfan syndrome a cardiac workup and chest x-ray was obtained to rule out any acute abnormalities. Her cardiac enzymes are negative. Her EKG does not show any evidence of STEMI. Her chest x-ray does not show any evidence of a pneumothorax. Patient was advised to follow up with primary care doctor in 2-3 days for repeat evaluation. Return precautions discussed Differential diagnosis: Upper back pain, ACS, pneumothorax, back strain There are no social concerns with this patient. Prescription drug management Prescriptions will include: Tylenol Medical management and examination interpretation discussions were had by me with other qualified healthcare professionals as indicated for the patient's care. ED Course Orders Procedure Category Date Status Time 12 Lead Ekg Tracing- EKG 08/01/24 Complete Technical 10:27 Cbc With Differential LAB 08/01/24 Complete 10:27 Basic Metabolic Panel LAB 08/01/24 Complete 10:27 Troponin I High LAB 1/9/25 Complete Sensitivity 10:27 B-Type Natriuretic LAB 08/01/24 Complete Peptide 10:27 Chest 1vw RAD 08/01/24 Taken 10:27 Vital Signs Date Time Temp Pulse Resp B/P (MAP) Pulse Ox O2 Delivery O2 Flow Rate FiO2 08/01/24 10:22 97.9 62 16 156/74 99 Room Air* 0 21 08/01/24 10:22 97.9 62 16 156/74 97 Room Air HEART Score Response (Comments) Value History: Low suspicion (0) 0 EKG: Normal 0 Age: 45-65yrs (+1) 1 Risk Factors: 1-2 risk factors (+1) 1 Initial Troponin: Normal limit (0) 0 HEART Score Risk: Low Risk for MACE (1-3) Total 2 DX & DISP Disposition: Discharge Departure Impression: Primary Impression: Upper back strain Condition: Stable Additional Instructions: Your blood work today is unremarkable. Your cardiac enzymes are negative. Your EKG does not show any evidence of a heart attack. Your chest x-ray does show a evidence of pneumonia, collapsed lung, or any other acute abnormality. Please follow up with your primary care doctor in 2-3 days for repeat evaluation. You may take Tylenol at home for supportive management. Return to the ER if you develop any new or worsening symptoms. Referrals: CAPRI LOFTON (PCP) Time of Disposition: 11:24 I have reviewed the case, and I agree with, Diagnosis and Plan I performed the substantive portion of the visit. I have reviewed and personally made and approve the management plan that is documented in the note by myself or the LIAM. I acknowledge for responsibility for the patient's management plan. ELLIE NAVARRO Aug 01, 2024 11:27
[2024-08-01] MEDS: acetaMINOPHEN 500 MG TABLET PO ONE (11:39)
[2024-08-01 11:41] VITALS: BP 141/71; PULSE 64; RESP 16; TEMP 97.9; O2SAT 97
--- NOTE | 2024-08-01 12:37 | HMCIMG ---
CHEST 1VW HISTORY: Left-sided chest pain COMPARISON: 06/29/2023 FINDINGS: A frontal projection of the chest was obtained. Prominent interstitial markings are seen with possible superimposed infiltrates. Poststernotomy changes are seen. The heart is enlarged. Degenerative changes of the thoracolumbar spine are present. No evidence of aortic calcification is seen. IMPRESSION: 1. Prominent interstitial markings are seen with possible superimposed infiltrates.
== END 2024-08-01 11:51 | disposition home or self-care (01) ==
LOC: EDH 10:16
DX: S29.012A Strain of muscle and tendon of back wall of thorax, initial encounter (principal); I10 Essential (primary) hypertension; Q87.40 Marfan syndrome, unspecified; Z79.82 Long term (current) use of aspirin; Z79.899 Other long term (current) drug therapy; Z88.1 Allergy status to other antibiotic agents; Z98.890 Other specified postprocedural states; X58.XXXA Exposure to other specified factors, initial encounter; Y93.E9 Activity, other interior property and clothing maintenance; Y92.89 Other specified places as the place of occurrence of the external cause; Y99.8 Other external cause status
CPT/HCPCS: 36415; 71045; 80048; 83880; 84484; 85025; 93005; 99285

== ENCOUNTER 2024-08-03 14:37 | Emergency (ER) | payer OTHER ==
[~2024-08-03] VITALS: Ht 177.8 cm; Wt 113.4 kg
--- NOTE | 2024-08-03 14:45 | ERN ---
ED Note History of Present Illness Stated Complaint: BLEEDING FROM LFT TOES, DIABETIC Chief Complaint: Toe Pain/Injury Time Seen by MD: 14:38 Dictation: PATIENT IS A 58-YEAR-OLD DIABETIC FEMALE COMING IN TODAY WITH COMPLAINTS OF HAVING BLEEDING FROM THE DISTAL LEFT GREAT TOE ONSET THIS MORNING. SHE STATES SHE THINKS SHE STUBBED IT LAST NIGHT BUT CONTINUED THROUGHOUT HER NIGHT THEN THIS MORNING WHEN SHE TOOK OF OFFER SOCKS AND SHOES SHE NOTICED THE BLEEDING FROM THE TOE AND SOME SKIN MISSING. SHE STATES SHE HAS NOT CHECKED HER BLOOD SUGAR HOWEVER WAS HOSPITALIZED HERE A YEAR AGO FOR THE SAME THING ON THE RIGHT GREAT TOE. SHE DENIES FEVER CHILLS NAUSEA VOMITING. TETANUS SHOT IS UP TO DATE. Allergies: Coded Allergies: doxycycline (Unverified Allergy, Unknown, RASH, 05/16/24) Home Meds Active Scripts Sulfamethoxazole/Trimethoprim (Bactrim Ds Tablet) 800 Mg-160 Mg Tablet, 1 TAB PO BID for 7 Days, #14 TAB 0 Refills Prov:ELLIE NAVARRO 05/16/24 Diphenhydramine HCl (Benadryl) 25 Mg Cap, 25 MG PO BID for 5 Days, #10 CAP Prov:ELLIE NAVARRO 05/15/24 Famotidine (Pepcid) 20 Mg Tablet, 1 TAB PO BID for 5 Days, #10 TAB 0 Refills Prov:ELLIE NAVARRO 05/15/24 Reported Medications Acetaminophen (Tylenol) 325 Mg Tablet, 650 MG PO Q4HPRN PRN for MILD PAIN (1-3), TAB 01/28/23 Losartan Potassium (Losartan Potassium) 50 Mg Tablet, 50 MG PO 1400, TAB 12/24/22 Metformin HCl (Metformin HCl) 500 Mg Tablet, 500 MG PO BIDMEALS, TAB 12/24/22 Sertraline HCl (Sertraline HCl) 100 Mg Tablet, 2 TAB PO HS, TAB 12/24/22 Atenolol (Atenolol) 25 Mg Tablet, 25 MG PO BID, TAB 04/04/18 Pravastatin Sodium (Pravastatin Sodium) 20 Mg Tablet, 20 MG PO NOON, TAB 04/02/18 Aspirin (Aspir 81) 81 Mg Tablet.dr, 81 MG PO HS, TAB 04/02/18 Warfarin Sodium (Coumadin) 6 Mg Tablet, 6 MG PO DAILYDINNER, TAB 04/02/18 Furosemide (Furosemide) 20 Mg Tablet, 20 MG PO DAILY, TAB 11/02/17 Past Medical History Past Medical History: Hypertension, Other Additional Past Medical Hx: MARFANS SYNDROME Surgical History: Other Surgical History Other: AORTIC VALVE Family History: Negative Social History: Negative, Lives with family, Other History: Not Applicable RN Note Reviewed/Agreed w/PFSH: Yes Review of System Dictation CONSTITUTIONAL: NEGATIVE EXCEPT FOR HPI HEAD/FACE: NEGATIVE EXCEPT FOR HPI EENT: NEGATIVE EXCEPT FOR HPI RESPIRATORY: NEGATIVE EXCEPT FOR HPI GASTROINTESTINAL/ABDOMINAL: NEGATIVE EXCEPT FOR HPI GENITOURINARY: NEGATIVE EXCEPT FOR HPI MUSCULOSKELETAL: NEGATIVE EXCEPT FOR HPI BLEEDING WITH A ABRASION TO DISTAL LEFT GREAT TOE INTEGUMENTARY: NEGATIVE EXCEPT FOR HPI NEUROLOGICAL/PSYCH: NEGATIVE EXCEPT FOR HPI HEMATOLOGIC/LYMPHATIC: NEGATIVE EXCEPT FOR HPI ALL SYSTEMS NEGATIVE, EXCEPT NOTED ABOVE. 13 POINT REVIEW OF SYSTEMS ASSESSED AND ALL NEGATIVE EXCEPT FOR ABOVE. Initial Vital Sign VS Vital Signs Date Time Temp Pulse Resp B/P (MAP) Pulse Ox O2 Delivery O2 Flow Rate FiO2 08/03/24 14:44 97.2 77 18 152/80 98 08/03/24 15:11 Room Air* 0 21 Physical Exam Dictation VITAL SIGNS REVIEWED GENERAL APPEARANCE: ALERT, ORIENTED X 3, MILD ACUTE DISTRESS, WELL DEVELOPED, NOURISHED. HEAD AND FACE: NON-TRAUMATIC. EYES: PERRL, PINK CONJUNCTIVAS, EYELID NO TRAUMA, ANTERIOR CHAMBER WITH ARCUS SENILIS. EARS: PINNAS INTACT AND NO SIGNS OF TRAUMA OR ERYTHEMA EAR CANALS CLEAR AND NO DISCHARGE TM NO ERYTHEMA NOSE: NO DISCHARGE, NO BLEEDING. OROPHARYNX: MOUTH NORMAL, TONGUE PINK, PHARYNX CLEAR,NO ERYTHEMA, TONSILS NO EXUDATES, NO ABSCESSES NOTED, MUCOUS MEMBRANE MOIST NECK: SUPPLE, NON-TENDER, NO THYROMEGALY, NO MASSES, NO JVD, NO BRUITS BREAST:DEFERRED CHEST:NO TENDERNESS, NO CREPITUS, NO PARADOXICAL MOVEMENT, NO RETRACTIONS LUNGS:CLEAR, WELL-VENTILATED, SYMMETRIC, NO RALES, NO WHEEZING, NO RHONCHI, NO STRIDOR, GOOD BREATH SOUNDS BILATERALLY HEART: REGULAR RATE, REGULAR RHYTHM, NO MURMUR, NO GALLOPS VASCULAR: NO PERIPHERAL EDEMA, ABDOMEN: SOFT, POSITIVE BOWEL SOUNDS, NONDISTENDED, NO GUARDING, NONTENDER, NO REBOUND, NO MASSES NO HEPATOMEGALY, NO SPLENOMEGALY, NO KAUR'S SIGN, NO HERNIAS. RECTAL: DEFERRED GENITAL: DEFERRED NEUROLOGICAL: NORMAL SPEECH, MOTOR FUNCTION INTACT, SENSORY FUNCTION INTACT MUSCULOSKELETAL: NECK NONTENDER, FULL RANGE OF MOTION, BACK NONTENDER, FULL RANGE OF MOTION, EXTREMITIES: NONTENDER, FULL RANGE OF MOTION SKIN: COLOR PINK, DRY, NO TURGOR, NO RASH, NO LACERATIONS, NO ABRASIONS, NO CONTUSIONS. LYMPHATIC: DEFERRED Results (Laboratory/Radiology) Laboratory/Radiology Laboratory Tests Test 08/03/24 15:02 White Blood Count 7.4 K/uL (4.8-10.8) Red Blood Count 4.39 MIL/uL (4.00-5.50) Hemoglobin 11.9 g/dL (12.0-16.0) L Hematocrit 37.6 % (36-48) Mean Corpuscular Volume 85.6 fL (79-99) Mean Corpuscular Hemoglobin 27.1 pg (27.0-33.0) Mean Corpuscular Hemoglobin Concent 31.6 g/dL (32.0-36.0) L Red Cell Distribution Width 13.9 % (11.0-15.5) Platelet Count 237 K/uL (130-400) Mean Platelet Volume 10.1 fL (7.5-10.5) Immature Granulocyte % (Auto) 0.4 % (0-1) Neutrophils (%) (Auto) 68.4 % (40.0-77.0) Lymphocytes (%) (Auto) 24.7 % (21.0-51.0) Monocytes (%) (Auto) 5.7 % (3.0-13.0) Eosinophils (%) (Auto) 0.5 % (0.0-8.0) Basophils (%) (Auto) 0.3 % (0.0-5.0) Neutrophils # (Auto) 5.1 K/uL (1.8-7.7) Lymphocytes # (Auto) 1.8 K/uL (1.0-4.8) Monocytes # (Auto) 0.4 K/uL (0.1-1.0) Eosinophils # (Auto) 0.04 K/uL (0.00-0.70) Basophils # (Auto) 0.02 K/uL (0.00-0.20) Absolute Immature Granulocyte (auto 0.03 K/uL (0-1) Nucleated Red Blood Cells 0.0 % (0.0-0.19) Sodium Level 139 mmol/L (136-145) Potassium Level 4.0 mmol/L (3.5-5.1) Chloride Level 101 mmol/L (101-111) Carbon Dioxide Level 31 mmol/L (21-32) Blood Urea Nitrogen 18 mg/dL (7-18) Creatinine 0.9 mg/dL (0.5-1.0) Glomerular Filtration Rate Calc 75 mL/min (>90) Random Glucose 153 mg/dL (70-105) H Total Calcium 9.2 mg/dL (8.5-10.1) FOOT COMP 3+VWS LT HISTORY: Injury COMPARISON: None TECHNIQUE: 3 images of left foot were obtained. FINDINGS: Metatarsus valgus deformity is seen of the first toe. There is no acute displaced fracture or dislocation. Degenerative changes are seen. IMPRESSION: 1. Findings as described above. Labs Reviewed?: Yes ED Course ED Course Orders Procedure Category Date Status Time Foot Comp 3+Vws Lt RAD 08/03/24 Resulted 14:42 Cbc With Differential LAB 08/03/24 Complete 14:42 Basic Metabolic Panel LAB 08/03/24 Complete 14:42 Vital Signs Date Time Temp Pulse Resp B/P (MAP) Pulse Ox O2 Delivery O2 Flow Rate FiO2 08/03/24 16:06 98.1 62 20 127/61 98 Room Air* 0 21 08/03/24 15:11 98.4 64 18 134/57 98 Room Air* 0 21 08/03/24 14:44 97.2 77 18 152/80 98 1645, patient will be discharged home after loading with clindamycin. X-ray and labs are negative, blood sugar 1patient will be discharged home with right great toe abrasion, put on clindamycin prophylactically and told to see her doctor Monday without fail. 5 Medical Decision Making MDM Medical discharge making based on labs and x-ray of left foot. All labs negative Left foot x-ray negative Discharged home with toe abrasion and loaded with clindamycin since patient is a diabetic female. DX & DISP Disposition: Discharge Departure Impression: Primary Impression: Abrasion of left great toe Additional Impression: Uncontrolled diabetes mellitus with hyperglycemia Condition: Stable Scripts Clindamycin HCl (Clindamycin HCl) 300 Mg Capsule 1 CAP PO QID for 10 Days, #40 CAP 0 Refills Prov: YONI AGUILAR NP 08/03/24 Additional Instructions: Follow-up with primary care provider in 1 to 2 days. Take medications as directed here in the emergency room. Okay to continue home medications unless otherwise discussed during your visit in the emergency room today. Return to your nearest emergency room if symptoms worsen or if there is no improvement. Call 911 if you need immediate assistance. Take Tylenol or Motrin [id number] as needed and if no contraindications are present. Increase oral hydration. A wound culture or urine culture was ordered here in the emergency room department please follow-up with primary care provider and advise them to get repeat ports from our facility. If you had any Rock wrap/splints that were applied here, please do not remove them until you see your primary care or specialty. Triple antibiotic ointment/[id number]- times a day for five days with Band-Aid to left big toe. Take antibiotics as directed until gone and see your primary care doctor Monday without fail for follow up and management Referrals: LIANNA SCHWAB MD (PCP) Time of Disposition: 16:49 I have reviewed the case, and I agree with, Diagnosis and Plan YONI AGUILAR NP Aug 03, 2024 14:45
[2024-08-03 15:18] LABS: BASOPHILS # (AUTO) 0.02 K/uL (0.00-0.20); BASOPHILS % (AUTO) 0.3 % (0.0-5.0); EOSINOPHILS # (AUTO) 0.04 K/uL (0.00-0.70); EOSINOPHILS % (AUTO) 0.5 % (0.0-8.0); HEMATOCRIT 37.6 % (36-48); IMMATURE GRANULOCYTE ABSOLUTE 0.03 K/uL (0-1); LYMPHOCYTES # (AUTO) 1.8 K/uL (1.0-4.8); LYMPHOCYTES % (AUTO) 24.7 % (21.0-51.0); MEAN CORPUSCULAR HEMOGLOBIN 27.1 pg (27.0-33.0); MEAN CORPUSCULAR HGB CONC 31.6 g/dL (32.0-36.0); MEAN CORPUSCULAR VOLUME 85.6 fL (79-99); MONOCYTES # (AUTO) 0.4 K/uL (0.1-1.0); MONOCYTES % (AUTO) 5.7 % (3.0-13.0); NEUTROPHILS # (AUTO) 5.1 K/uL (1.8-7.7); NEUTROPHILS % (AUTO) 68.4 % (40.0-77.0); PLATELET COUNT (AUTO) 237 K/uL (130-400); RED BLOOD CELL COUNT(AUTO) 4.39 MIL/uL (4.00-5.50); RED CELL DISTRIBUTION WIDTH 13.9 % (11.0-15.5); WHITE BLOOD COUNT (AUTO) 7.4 K/uL (4.8-10.8)
--- NOTE | 2024-08-03 15:21 | HMCIMG ---
FOOT COMP 3+VWS LT HISTORY: Injury COMPARISON: None TECHNIQUE: 3 images of left foot were obtained. FINDINGS: Metatarsus valgus deformity is seen of the first toe. There is no acute displaced fracture or dislocation. Degenerative changes are seen. IMPRESSION: 1. Findings as described above.
[2024-08-03 15:27] LABS: CREATININE 0.9 mg/dL (0.5-1.0)
[2024-08-03 16:06] VITALS: TEMP 98
[2024-08-03] MEDS ORDERED: CLIN-141 PO (16:51)
[2024-08-03 16:56] VITALS: BP 126/60; PULSE 67; RESP 18; O2SAT 98
[2024-08-03] MEDS: CLINDAMYCIN 150 MG CAP PO SCH (17:03)
== END 2024-08-03 17:06 | disposition home or self-care (01) ==
LOC: EDH 14:37
DX: S90.412A Abrasion, left great toe, initial encounter (principal); E11.65 Type 2 diabetes mellitus with hyperglycemia; I10 Essential (primary) hypertension; Q87.40 Marfan syndrome, unspecified; Z79.82 Long term (current) use of aspirin; Z79.899 Other long term (current) drug therapy; Z88.1 Allergy status to other antibiotic agents; X58.XXXA Exposure to other specified factors, initial encounter; Y93.89 Activity, other specified; Y92.89 Other specified places as the place of occurrence of the external cause; Y99.8 Other external cause status
CPT/HCPCS: 36415; 73630; 80048; 85025; 99284

== ENCOUNTER 2024-08-22 11:34 | Emergency (ER) | payer OTHER ==
[~2024-08-22] VITALS: Ht 177.8 cm; Wt 113.4 kg
[~2024-08-22 11:34] MED LIST changes: +CLIN-141 PO
--- NOTE | 2024-08-22 11:48 | ERN ---
ED Note History of Present Illness Stated Complaint: HEADACHE Chief Complaint: Other Problems Time Seen by MD: 11:36 Dictation: PATIENT IS A 58-YEAR-OLD FEMALE COMING IN TODAY WITH COMPLAINTS OF NOT FEELING GOOD FOR THE LAST SEVERAL DAYS. SHE DENIES FEVER CHILLS NAUSEA VOMITING NO LOSS OF TASTE OR SMELL. NO DIARRHEA. STATES SHE HAS HAD A HISTORY OF AORTIC DISSECTION AND MITRAL VALVE REPLACEMENT. NO CHEST PAIN AT THIS TIME NO BACK PAIN Allergies: Coded Allergies: doxycycline (Unverified Allergy, Unknown, RASH, 05/16/24) Home Meds Active Scripts Clindamycin HCl (Clindamycin HCl) 300 Mg Capsule, 1 CAP PO QID for 10 Days, #40 CAP 0 Refills Prov:YONI AGUILAR NP 08/03/24 Sulfamethoxazole/Trimethoprim (Bactrim Ds Tablet) 800 Mg-160 Mg Tablet, 1 TAB PO BID for 7 Days, #14 TAB 0 Refills Prov:ELLIE NAVARRO 05/16/24 Diphenhydramine HCl (Benadryl) 25 Mg Cap, 25 MG PO BID for 5 Days, #10 CAP Prov:ELLIE NAVARRO 05/15/24 Famotidine (Pepcid) 20 Mg Tablet, 1 TAB PO BID for 5 Days, #10 TAB 0 Refills Prov:ELLIE NAVARRO 05/15/24 Reported Medications Acetaminophen (Tylenol) 325 Mg Tablet, 650 MG PO Q4HPRN PRN for MILD PAIN (1-3), TAB 01/28/23 Losartan Potassium (Losartan Potassium) 50 Mg Tablet, 50 MG PO 1400, TAB 12/24/22 Metformin HCl (Metformin HCl) 500 Mg Tablet, 500 MG PO BIDMEALS, TAB 12/24/22 Sertraline HCl (Sertraline HCl) 100 Mg Tablet, 2 TAB PO HS, TAB 12/24/22 Atenolol (Atenolol) 25 Mg Tablet, 25 MG PO BID, TAB 04/04/18 Pravastatin Sodium (Pravastatin Sodium) 20 Mg Tablet, 20 MG PO NOON, TAB 04/02/18 Aspirin (Aspir 81) 81 Mg Tablet.dr, 81 MG PO HS, TAB 04/02/18 Warfarin Sodium (Coumadin) 6 Mg Tablet, 6 MG PO DAILYDINNER, TAB 04/02/18 Furosemide (Furosemide) 20 Mg Tablet, 20 MG PO DAILY, TAB 11/02/17 Past Medical History Past Medical History: Anxiety, CAD, Diabetes-Type II, Hypertension, Other Additional Past Medical Hx: MARFANS SYNDROME Surgical History: Other Surgical History Other: AORTIC VALVE Family History: Negative Social History: Negative, Lives with family, Other History: Not Applicable RN Note Reviewed/Agreed w/PFSH: Yes Review of System Dictation CONSTITUTIONAL: NEGATIVE EXCEPT FOR HPI FEELING WEAK HEAD/FACE: NEGATIVE EXCEPT FOR HPI EENT: NEGATIVE EXCEPT FOR HPI RESPIRATORY: NEGATIVE EXCEPT FOR HPI GASTROINTESTINAL/ABDOMINAL: NEGATIVE EXCEPT FOR HPI GENITOURINARY: NEGATIVE EXCEPT FOR HPI MUSCULOSKELETAL: NEGATIVE EXCEPT FOR HPI INTEGUMENTARY: NEGATIVE EXCEPT FOR HPI NEUROLOGICAL/PSYCH: NEGATIVE EXCEPT FOR HPI HEMATOLOGIC/LYMPHATIC: NEGATIVE EXCEPT FOR HPI ALL SYSTEMS NEGATIVE, EXCEPT NOTED ABOVE. 13 POINT REVIEW OF SYSTEMS ASSESSED AND ALL NEGATIVE EXCEPT FOR ABOVE. Initial Vital Sign VS Vital Signs Date Time Temp Pulse Resp B/P (MAP) Pulse Ox O2 Delivery O2 Flow Rate FiO2 08/22/24 11:38 97.9 76 16 163/82 98 Room Air Physical Exam Dictation VITAL SIGNS REVIEWED GENERAL APPEARANCE: ALERT, ORIENTED X 3, NO ACUTE DISTRESS, WELL DEVELOPED, NOURISHED. HEAD AND FACE: NON-TRAUMATIC. EYES: PERRL, PINK CONJUNCTIVAS, EYELID NO TRAUMA, ANTERIOR CHAMBER WITH ARCUS SENILIS. EARS: PINNAS INTACT AND NO SIGNS OF TRAUMA OR ERYTHEMA EAR CANALS CLEAR AND NO DISCHARGE TM NO ERYTHEMA NOSE: NO DISCHARGE, NO BLEEDING. OROPHARYNX: MOUTH NORMAL, TONGUE PINK, PHARYNX CLEAR,NO ERYTHEMA, TONSILS NO EXUDATES, NO ABSCESSES NOTED, MUCOUS MEMBRANE MOIST NECK: SUPPLE, NON-TENDER, NO THYROMEGALY, NO MASSES, NO JVD, NO BRUITS BREAST:DEFERRED CHEST:NO TENDERNESS, NO CREPITUS, NO PARADOXICAL MOVEMENT, NO RETRACTIONS LUNGS:CLEAR, WELL-VENTILATED, SYMMETRIC, NO RALES, NO WHEEZING, NO RHONCHI, NO STRIDOR, GOOD BREATH SOUNDS BILATERALLY HEART: REGULAR RATE, REGULAR RHYTHM, NO MURMUR, NO GALLOPS VASCULAR: NO PERIPHERAL EDEMA, ABDOMEN: SOFT, POSITIVE BOWEL SOUNDS, NONDISTENDED, NO GUARDING, NONTENDER, NO REBOUND, NO MASSES NO HEPATOMEGALY, NO SPLENOMEGALY, NO KAUR'S SIGN, NO HERNIAS. RECTAL: DEFERRED GENITAL: DEFERRED NEUROLOGICAL: NORMAL SPEECH, MOTOR FUNCTION INTACT, SENSORY FUNCTION INTACT MUSCULOSKELETAL: NECK NONTENDER, FULL RANGE OF MOTION, BACK NONTENDER, FULL RANGE OF MOTION, EXTREMITIES: NONTENDER, FULL RANGE OF MOTION SKIN: COLOR PINK, DRY, NO TURGOR, NO RASH, NO LACERATIONS, NO ABRASIONS, NO CONTUSIONS. LYMPHATIC: DEFERRED Results (Laboratory/Radiology) Laboratory/Radiology Laboratory Tests Test 08/22/24 12:33 08/22/24 13:02 Urine Color YELLOW (YELLOW) Urine Appearance HAZY (CLEAR) Urine pH 6.0 (5.0-8.0) Urine Specific [place] 1.016 (1.001-1.031) Urine Protein NEGATIVE mg/dL (NEGATIVE) Urine Glucose (UA) NEGATIVE mg/dL (NEGATIVE) Urine Ketones NEGATIVE mg/dL (NEGATIVE) Urine Occult Blood MODERATE (NEGATIVE) H Urine Nitrate 2+ (NEGATIVE) H Urine Bilirubin NEGATIVE mg/dL (NEGATIVE) Urine Urobilinogen 0.2 mg/dL (0.2-1.0) Urine Leukocyte Esterase 500 [place]/uL (NEGATIVE) H Urine RBC 11-25 /HPF (0-1) H Urine WBC 11-25 /HPF (0-1) H Urine Squamous Epithelial Cells MOD /HPF (0-2) Urine Bacteria MOD /HPF (None Seen) White Blood Count 6.6 K/uL (4.8-10.8) Red Blood Count 4.43 MIL/uL (4.00-5.50) Hemoglobin 11.8 g/dL (12.0-16.0) L Hematocrit 37.9 % (36-48) Mean Corpuscular Volume 85.6 fL (79-99) Mean Corpuscular Hemoglobin 26.6 pg (27.0-33.0) L Mean Corpuscular Hemoglobin Concent 31.1 g/dL (32.0-36.0) L Red Cell Distribution Width 14.1 % (11.0-15.5) Platelet Count 217 K/uL (130-400) Mean Platelet Volume 10.1 fL (7.5-10.5) Immature Granulocyte % (Auto) 0.5 % (0-1) Neutrophils (%) (Auto) 69.0 % (40.0-77.0) Lymphocytes (%) (Auto) 24.3 % (21.0-51.0) Monocytes (%) (Auto) 5.3 % (3.0-13.0) Eosinophils (%) (Auto) 0.6 % (0.0-8.0) Basophils (%) (Auto) 0.3 % (0.0-5.0) Neutrophils # (Auto) 4.5 K/uL (1.8-7.7) Lymphocytes # (Auto) 1.6 K/uL (1.0-4.8) Monocytes # (Auto) 0.4 K/uL (0.1-1.0) Eosinophils # (Auto) 0.04 K/uL (0.00-0.70) Basophils # (Auto) 0.02 K/uL (0.00-0.20) Absolute Immature Granulocyte (auto 0.03 K/uL (0-1) Nucleated Red Blood Cells 0.0 % (0.0-0.19) Sodium Level 139 mmol/L (136-145) Potassium Level 4.0 mmol/L (3.5-5.1) Chloride Level 102 mmol/L (101-111) Carbon Dioxide Level 30 mmol/L (21-32) Blood Urea Nitrogen 15 mg/dL (7-18) Creatinine 0.8 mg/dL (0.5-1.0) Glomerular Filtration Rate Calc 86 mL/min (>90) Random Glucose 131 mg/dL (70-105) H Total Calcium 9.1 mg/dL (8.5-10.1) Magnesium Level 1.70 mg/dL (1.80-2.40) L Troponin I High Sensitivity 6 ng/L (4-50) B-Type Natriuretic Peptide 36 pg/mL (0-100) CHEST 1VW REASON: SHORTNESS A BREATH COMPARISON: 08/01/2024 FINDINGS: Single view of the chest was obtained. Lungs are clear. Heart size is normal. There is no pulmonary vascular congestion. Mediastinum and bony thorax appear unremarkable. IMPRESSION: 1. Normal single view chest x-ra Labs Reviewed?: Yes EKG Comment: EKG SINUS RHYTHM/HEART RATE 64/AXIS NORMAL/NONSPECIFIC T-WAVE CHANGES ANTERIOR LATERAL LEADS ED Course ED Course Orders Procedure Category Date Status Time Covid19 (Sars Antigen LAB 08/22/24 Logged Rapid) 11:45 Cbc With Differential LAB 08/22/24 Complete 11:45 B-Type Natriuretic LAB 08/22/24 Complete Peptide 11:45 Chest 1vw RAD 08/22/24 Resulted 11:45 12 Lead Ekg Tracing- EKG 08/22/24 Complete Technical 11:45 Magnesium LAB 08/22/24 Complete 11:45 Troponin I High LAB 08/22/24 Complete Sensitivity 11:45 Urinalysis Profile LAB 08/22/24 Complete 11:45 Basic Metabolic Panel LAB 08/22/24 Complete 11:45 Culture Urine MALINI 08/22/24 In Process 12:55 Vital Signs Date Time Temp Pulse Resp B/P (MAP) Pulse Ox O2 Delivery O2 Flow Rate FiO2 08/22/24 11:38 97.9 76 16 163/82 98 Room Air 1920, discussed lab findings with patient she is aware that labs unremarkable other than she has a acute cystitis with hematuria she will be given Augmentin 875. We will be discharged home with Augmentin and Pyridium told to see her primary care doctor at [facility] in the next 2-3 days HEART Score Response (Comments) Value EKG: Repolarization changes 1 Age: 45-65yrs (+1) 1 Risk Factors: 3+ risk factors (+2) 2 Initial Troponin: Normal limit (0) 0 Total 4 Medical Decision Making MDM MDM: Differential diagnosis: ACS/AMI/electrolyte imbalan ce/dehydration/UTI/pneumonia/bronchitis/fluid overload Rationale: Tests considered and ordered secondary to shared decision making include: EKG/labs/radiology Previous outside records reviewed: Old ER visits. Risk of complication and/or morbidity or mortality of patient management: None Medications-Per medication reconciliation Need for hospitalization: Patient does not meet criteria for hospitalization. No Need for emergency major/minor surgery: No There are no social concerns with this patient. Prescription drug management Augmentin/Pyridium Prescriptions will include symptomatic care Patient's prior external medical records from other ER visits were reviewed by me as indicated. Prior testing and results from previous visits were reviewed. Prior tests were taken into account with medical decision making and resource utilization, independent historian/historians were used to obtain complete medical history. I independently interpreted the test that were performed, results were reviewed by me and considered findings on radiology if ordered. Medical management and examination interpretation discussions were had by me with other qualified healthcare professionals as indicated for the patient's care. DX & DISP Disposition: Discharge Departure Impression: Primary Impression: Acute cystitis with hematuria Additional Impressions: Hypomagnesemia, Diabetes mellitus with hyperglycemia Condition: Stable Scripts Amoxicillin/Potassium Clav (Amox Tr-K Clv 875-125 mg Tab) 875 Mg-125 Mg Tablet 1 EACH PO BID for 7 Days, #14 TAB 0 Refills Prov: YONI AGUILAR NP 08/22/24 Magnesium Oxide/Mag Aa Chelate (Magnesium 300 mg Capsule) 300 Mg Capsule 300 MG PO DAILY for 10 Days, #10 CAP 0 Refills Prov: YONI AGUILAR NP 08/22/24 Additional Instructions: Follow-up with primary care provider in 1 to 2 days. Take medications as directed here in the emergency room. Okay to continue home medications unless otherwise discussed during your visit in the emergency room today. Return to your nearest emergency room if symptoms worsen or if there is no improvement. Call 911 if you need immediate assistance. Take Tylenol or Motrin [id number] as needed and if no contraindications are present. Increase o ral hydration. A wound culture or urine culture was ordered here in the emergency room department please follow-up with primary care provider and advise them to get repeat ports from our facility. If you had any Rock wrap/splints that were applied here, please do not remove them until you see your primary care or specialty. Take antibiotics as directed until gone starting tomorrow. Take magnesium as directed with food for the next 10 days. Follow up with your doctor Referrals: LIANNA SCHWAB MD (PCP) Time of Disposition: 19:22 I have reviewed the case, and I agree with, Diagnosis and Plan YONI AGUILAR NP Aug 22, 2024 11:48
--- NOTE | 2024-08-22 12:25 | EKG ---
[facility] Test Date: 2024-08-22 Test Time: 12:22:51 Pat Name: RAMIRO GAN Department: [facility] Room: Gender: F Database Architect: [id number] Requested By: YONI AGUIALR Order Number: [id number] Reading MD: Cal Guerra Measurements Intervals [place] Rate: 64 P: 49 MO: 169 QRS: 71 QRSD: 104 T: 76 QT: 417 QTc: 431 Interpretive Statements Sinus rhythm Nonspecific T abnrm, anterolateral leads Compared to ECG 08/01/2024 10:32:59 No significant changes Electronically Signed On 08-22-2024 19:48:47 CINDER CRANE OPERATOR by Cal Guerra Please click the below link to view image of tracing.
[2024-08-22 12:53] LABS: BILIRUBIN,URINE NEGATIVE (NEGATIVE); COLOR,URINE YELLOW (YELLOW); GLUCOSE, URINE (UA) NEGATIVE (NEGATIVE); KETONES,URINE NEGATIVE (NEGATIVE); LEUKOCYTE ESTERASE ,URINE 500 Leu/uL (NEGATIVE); NITRATE,URINE 2+ (NEGATIVE); OCCULT BLOOD,URINE MODERATE (NEGATIVE); PROTEIN,URINE NEGATIVE (NEGATIVE); UROBILINOGEN,URINE 0.2 mg/dL (0.2-1.0)
[2024-08-22 12:54] LABS: ADD UA MICROSCOPIC YES; APPEARANCE,URINE HAZY (CLEAR)
[2024-08-22 12:56] LABS: BACTERIA,URINE MOD /HPF (None Seen); MUCUS,URINE RARE LPF (None Seen); SQUAMOUS EPITHELIAL CELL,UR MOD /HPF (0-2)
--- NOTE | 2024-08-22 13:04 | HMCIMG ---
CHEST 1VW REASON: SHORTNESS A BREATH COMPARISON: 08/01/2024 FINDINGS: Single view of the chest was obtained. Lungs are clear. Heart size is normal. There is no pulmonary vascular congestion. Mediastinum and bony thorax appear unremarkable. IMPRESSION: 1. Normal single view chest x-ray.
[2024-08-22 13:14] LABS: BASOPHILS # (AUTO) 0.02 K/uL (0.00-0.20); BASOPHILS % (AUTO) 0.3 % (0.0-5.0); EOSINOPHILS # (AUTO) 0.04 K/uL (0.00-0.70); EOSINOPHILS % (AUTO) 0.6 % (0.0-8.0); HEMATOCRIT 37.9 % (36-48); IMMATURE GRANULOCYTE ABSOLUTE 0.03 K/uL (0-1); LYMPHOCYTES # (AUTO) 1.6 K/uL (1.0-4.8); LYMPHOCYTES % (AUTO) 24.3 % (21.0-51.0); MEAN CORPUSCULAR HEMOGLOBIN 26.6 pg (27.0-33.0); MEAN CORPUSCULAR HGB CONC 31.1 g/dL (32.0-36.0); MEAN CORPUSCULAR VOLUME 85.6 fL (79-99); MONOCYTES # (AUTO) 0.4 K/uL (0.1-1.0); MONOCYTES % (AUTO) 5.3 % (3.0-13.0); NEUTROPHILS # (AUTO) 4.5 K/uL (1.8-7.7); PLATELET COUNT (AUTO) 217 K/uL (130-400); RED BLOOD CELL COUNT(AUTO) 4.43 MIL/uL (4.00-5.50); RED CELL DISTRIBUTION WIDTH 14.1 % (11.0-15.5); WHITE BLOOD COUNT (AUTO) 6.6 K/uL (4.8-10.8)
[2024-08-22 13:20] LABS: CREATININE 0.8 mg/dL (0.5-1.0); MAGNESIUM 1.7 mg/dL (1.80-2.40)
[2024-08-22 13:37] LABS: B-TYPE NATRIURETIC PEPTIDE 36 pg/mL (0-100)
[2024-08-22] MEDS ORDERED: AMOX1TAB16 PO (19:23)
[2024-08-22] MEDS ORDERED: MAGN300C PO (19:23)
[2024-08-22] MEDS: AMOX/CLAV 875/125MG TAB PO ONE (19:46)
[2024-08-22 19:47] VITALS: BP 132/69; PULSE 54; RESP 17; TEMP 98.5; O2SAT 98
== END 2024-08-22 19:57 | disposition home or self-care (01) ==
LOC: EDH 11:34
DX: N30.01 Acute cystitis with hematuria (principal); E83.42 Hypomagnesemia; E11.65 Type 2 diabetes mellitus with hyperglycemia; F41.9 Anxiety disorder, unspecified; I10 Essential (primary) hypertension; I25.10 Atherosclerotic heart disease of native coronary artery without angina pectoris; Z79.82 Long term (current) use of aspirin; Z79.899 Other long term (current) drug therapy; Z88.1 Allergy status to other antibiotic agents
CPT/HCPCS: 36415; 71045; 80048; 81001; 83735; 83880; 84484; 85025; 87086; 87186; 93005; 99285

== ENCOUNTER 2024-10-07 00:24 | Emergency (ER) | payer OTHER ==
[~2024-10-07] VITALS: Ht 177.8 cm; Wt 113.4 kg
[~2024-10-07 00:24] MED LIST changes: +AMOX1TAB16 PO; +MAGN300C PO
--- NOTE | 2024-10-07 00:54 | NUR ---
SUPERFICIAL ABRASION APPROX. 0.5 CM NOTED TO OUTER RIGHT THIGH, MINIMAL SANGUINOUS OOZING NOTED, PT ENDORSES +BT WARFARIN, WOUND CLEANSED WITH NS, PAT DRIED, QUIK CLOT DRESSING APPLIED, TOLERATED WELL.
--- NOTE | 2024-10-07 01:07 | ERN ---
ED Note History of Present Illness Stated Complaint: BLEEDING SCRATCH Chief Complaint: Other Problems Time Seen by MD: 00:29 Time Seen by Midlevel: 00:29 Dictation: The patient is a 58-year-old female with a history of diabetes, Marfan syndrome, aortic dissection with mechanical bowel on warfarin 6 mg daily, hypertension who presents to the emergency department with wound to her right upper thigh after she accidentally scratched herself around 5:00 p.m.. Patient reports she has been having trouble controlling the bleeding. Allergies: Coded Allergies: doxycycline (Unverified Allergy, Unknown, RASH, 05/16/24) Home Meds Active Scripts Amoxicillin/Potassium Clav (Amox Tr-K Clv 875-125 mg Tab) 875 Mg-125 Mg Tablet, 1 EACH PO BID for 7 Days, #14 TAB 0 Refills Prov:YONI AGUILAR WEAVER TIRE CORD 08/22/24 Magnesium Oxide/Mag Aa Chelate (Magnesium 300 mg Capsule) 300 Mg Capsule, 300 MG PO DAILY for 10 Days, #10 CAP 0 Refills Prov:YONI AGUILAR NP 08/22/24 Clindamycin HCl (Clindamycin HCl) 300 Mg Capsule, 1 CAP PO QID for 10 Days, #40 CAP 0 Refills Prov:YONI AGUILAR WEAVER TIRE CORD 08/03/24 Sulfamethoxazole/Trimethoprim (Bactrim Ds Tablet) 800 Mg-160 Mg Tablet, 1 TAB PO BID for 7 Days, #14 TAB 0 Refills Prov:ELLIE NAVARRO 05/16/24 Diphenhydramine HCl (Benadryl) 25 Mg Cap, 25 MG PO BID for 5 Days, #10 CAP Prov:ELLIE NAVARRO 05/15/24 Famotidine (Pepcid) 20 Mg Tablet, 1 TAB PO BID for 5 Days, #10 TAB 0 Refills Prov:ELLIE NAVARRO 05/15/24 Reported Medications Acetaminophen (Tylenol) 325 Mg Tablet, 650 MG PO Q4HPRN PRN for MILD PAIN (1-3), TAB 01/28/23 Losartan Potassium (Losartan Potassium) 50 Mg Tablet, 50 MG PO 1400, TAB 12/24/22 Metformin HCl (Metformin HCl) 500 Mg Tablet, 500 MG PO BIDMEALS, TAB 12/24/22 Sertraline HCl (Sertraline HCl) 100 Mg Tablet, 2 TAB PO HS, TAB 12/24/22 Atenolol (Atenolol) 25 Mg Tablet, 25 MG PO BID, TAB 04/04/18 Pravastatin Sodium (Pravastatin Sodium) 20 Mg Tablet, 20 MG PO NOON, TAB 04/02/18 Aspirin (Aspir 81) 81 Mg Tablet.dr, 81 MG PO HS, TAB 04/02/18 Warfarin Sodium (Coumadin) 6 Mg Tablet, 6 MG PO DAILYDINNER, TAB 04/02/18 Furosemide (Furosemide) 20 Mg Tablet, 20 MG PO DAILY, TAB 11/02/17 Past Medical History Past Medical History: Anxiety, CAD, Diabetes-Type II, Hypertension, Other Additional Past Medical Hx: MARFANS SYNDROME, AORTIC DISSECTION, ESBL Surgical History: Hysterectomy, CABG, Other Surgical History Other: AORTIC VALVE, AORTIC DISSECTION Family History: Negative Social History: Negative, Lives with family, Other History: Not Applicable RN Note Reviewed/Agreed w/PFSH: Yes Review of System Dictation Constitutional: Negative for fever,chills, and weight loss Eyes: Negative for injury, pain,redness, and discharge ENT: Negative for injury,pain or swelling Cardiovascular: Negative for chest pain, palpitations, and edema Respiratory: Negative for shortness of breath, cough, and wheezing, Abdomen/GI: Negative for abdominal pain, nausea, vomiting, diarrhea, and constipation Back: Negative for injury and pain : Negative for injury, bleeding and discharge MS/Extremity: Negative for injury and deformity Skin: Negative for rash, and discoloration positive for abrasion to right upper thigh Neuro: Negative for headache, weakness, numbness, tingling, and seizure Psych: Negative for suicide ideation, homicidal ideation, and hallucinations Initial Vital Sign VS Vital Signs Date Time Temp Pulse Resp B/P (MAP) Pulse Ox O2 Delivery O2 Flow Rate FiO2 10/07/24 00:25 97.7 59 20 181/81 100 Room Air 10/07/24 00:47 0 21 Physical Exam Dictation Vital Signs reviewed General Appearance: Alert, oriented x 3, no acute distress, well developed, nourished. Head and Face: non-traumatic. Eyes: PERRL, pink conjunctivas, eyelid no trauma, anterior chamber with arcus senilis. Ears: Pinnas intact and no signs of trauma or erythema ear canals clear and no discharge TM no erythema Nose: No discharge, no bleeding. Oropharynx: Mouth normal, tongue pink. pharynx clear,no erythema, tonsils no exudates, no abscesses noted, mucous membrane moist Neck: Supple, non-tender, no thyromegaly, no masses, no JVD, no bruits Breast:Deferred Chest:No tenderness, no crepitus, no paradoxical movement, no retractions Lungs:Clear, well-ventilated, symmetric, no rales, no wheezing, no rhonchi, no stridor, good breath sounds bilaterally Heart: Regular rate, regular rhythm, no murmur, no gallops Vascular: no peripheral edema, Abdomen: Soft, positive bowel sounds, nondistended, no guarding, nontender, no rebound, no masses no hepatomegaly, no splenomegaly, no Hope's sign, no hernias. Rectal: Deferred Genital: Deferred Neurological: Normal speech, motor function intact, sensory function intact Musculoskeletal: Neck nontender, full range of motion, back nontender, full range of motion, Extremities: nontender, full range of motion Skin: Color pink, dry, no turgor, no rash, no lacerations, , no contusions. Small abrasion to right upper thigh less than1 cm, active scant bleeding Lymphatic: Deferred Results (Laboratory/Radiology) Laboratory/Radiology Laboratory Tests Test 10/07/24 01:27 White Blood Count 6.3 K/uL (4.8-10.8) Red Blood Count 3.99 MIL/uL (4.00-5.50) L Hemoglobin 10.6 g/dL (12.0-16.0) L Hematocrit 34.6 % (36-48) L Mean Corpuscular Volume 86.7 fL (79-99) Mean Corpuscular Hemoglobin 26.6 pg (27.0-33.0) L Mean Corpuscular Hemoglobin Concent 30.6 g/dL (32.0-36.0) L Red Cell Distribution Width 14.5 % (11.0-15.5) Platelet Count 183 K/uL (130-400) Mean Platelet Volume 10.4 fL (7.5-10.5) Immature Granulocyte % (Auto) 0.5 % (0-1) Neutrophils (%) (Auto) 55.8 % (40.0-77.0) Lymphocytes (%) (Auto) 33.3 % (21.0-51.0) Monocytes (%) (Auto) 8.3 % (3.0-13.0) Eosinophils (%) (Auto) 1.6 % (0.0-8.0) Basophils (%) (Auto) 0.5 % (0.0-5.0) Neutrophils # (Auto) 3.5 K/uL (1.8-7.7) Lymphocytes # (Auto) 2.1 K/uL (1.0-4.8) Monocytes # (Auto) 0.5 K/uL (0.1-1.0) Eosinophils # (Auto) 0.10 K/uL (0.00-0.70) Basophils # (Auto) 0.03 K/uL (0.00-0.20) Absolute Immature Granulocyte (auto 0.03 K/uL (0-1) Nucleated Red Blood Cells 0.0 % (0.0-0.19) Prothrombin Time 19.7 SEC (9.6-11.6) H Prothromb Time International Ratio 1.99 (0.85-1.15) H Activated Partial Thromboplast Time 37.0 SEC (26.3-35.5) H Labs Reviewed?: Yes ED Course ED Course Orders Procedure Category Date Status Time Cbc With Differential LAB 10/07/24 In Process 01:14 Pt And Ptt LAB 10/07/24 Complete 01:14 Vital Signs Date Time Temp Pulse Resp B/P (MAP) Pulse Ox O2 Delivery O2 Flow Rate FiO2 10/07/24 00:47 98.1 56 18 166/67 97 Room Air* 0 21 10/07/24 00:25 97.7 59 20 181/81 100 Room Air Medical Decision Making MDM The patient is a 58-year-old female with a history of diabetes, Marfan syndrome, aortic dissection with mechanical bowel on warfarin 6 mg daily, hypertension who presents to the emergency department with wound to her right upper thigh after she accidentally scratched herself around 5:00 p.m.. Patient reports she has been having trouble controlling the bleeding. CBC showed no leukocytosis, mild normocytic anemia, normal platelets, INR at 1.99. Patient's wound was please with quick clot. Wound reassessed in no longer bleeding. Wound is very superficial no need for repair. Patient will be discharged to follow up with PCP. Differential diagnosis: Elevated INR, anemia, thrombocytopenia Need for hospitalization: Patient does not meet criteria for hospitalization. There are no social concerns with this patient. DX & DISP Disposition: Discharge Departure Impression: Primary Impression: Abrasion of right lower leg Condition: Stable Additional Instructions: Continue to applied pressure dressing for the next24 hours. If eating develops apply pressure until it stops. If symptoms worsen please return to ER. FOLLOW-UP WITH PRIMARY CARE PROVIDER IN 1 TO 2 DAYS. TAKE MEDICATIONS DIRECTED HERE IN THE EMERGENCY ROOM. OKAY TO CONTINUE HOME MEDICATIONS UNLESS OTHERWISE DISCUSSED DURING YOUR VISIT IN THE EMERGENCY ROOM TODAY. RETURN TO YOUR NEAREST EMERGENCY ROOM IF SYMPTOMS WORSEN OR IF THERE IS NO IMPROVEMENT. CALL 911 IF YOU NEED IMMEDIATE ASSISTANCE. TAKE TYLENOL OR MOTRIN [id number] NEEDED AND IF NO CONTRAINDICATIONS ARE PRESENT. INCREASE ORAL HYDRATION. A WOUND CULTURE OR URINE CULTURE WAS ORDERED HERE IN THE EMERGENCY ROOM DEPARTMENT PLEASE FOLLOW-UP WITH PRIMARY CARE PROVIDER AND ADVISE THEM TO GET REPEAT PORTS FROM OUR FACILITY. IF YOU HAD ANY MIKE WRAP/SPLINTS THAT WERE APPLIED HERE, PLEASE DO NOT REMOVE THEM UNTIL YOU SEE YOUR PRIMARY CARE OR SPECIALTY. Referrals: LIANNA SCHWAB MD (PCP) Time of Disposition: 01:58 I have reviewed the case, and I agree with, Diagnosis and Plan MILES ABDALLA Oct 07, 2024 01:07
[2024-10-07 01:36] LABS: BASOPHILS # (AUTO) 0.03 K/uL (0.00-0.20); BASOPHILS % (AUTO) 0.5 % (0.0-5.0); EOSINOPHILS % (AUTO) 1.6 % (0.0-8.0); HEMATOCRIT 34.6 % (36-48); IMMATURE GRANULOCYTE ABSOLUTE 0.03 K/uL (0-1); LYMPHOCYTES # (AUTO) 2.1 K/uL (1.0-4.8); LYMPHOCYTES % (AUTO) 33.3 % (21.0-51.0); MEAN CORPUSCULAR HEMOGLOBIN 26.6 pg (27.0-33.0); MEAN CORPUSCULAR HGB CONC 30.6 g/dL (32.0-36.0); MEAN CORPUSCULAR VOLUME 86.7 fL (79-99); MONOCYTES # (AUTO) 0.5 K/uL (0.1-1.0); MONOCYTES % (AUTO) 8.3 % (3.0-13.0); NEUTROPHILS # (AUTO) 3.5 K/uL (1.8-7.7); NEUTROPHILS % (AUTO) 55.8 % (40.0-77.0); PLATELET COUNT (AUTO) 183 K/uL (130-400); RED BLOOD CELL COUNT(AUTO) 3.99 MIL/uL (4.00-5.50); RED CELL DISTRIBUTION WIDTH 14.5 % (11.0-15.5); WHITE BLOOD COUNT (AUTO) 6.3 K/uL (4.8-10.8)
[2024-10-07 01:48] LABS: INR 1.99 (0.85-1.15); PROTHROMBIN TIME 19.7 SEC (9.6-11.6)
[2024-10-07 02:01] VITALS: BP 158/68; PULSE 57; RESP 19; TEMP 98; O2SAT 97
== END 2024-10-07 02:07 | disposition home or self-care (01) ==
LOC: EDH 00:24
DX: S80.811A Abrasion, right lower leg, initial encounter (principal); S70.311A Abrasion, right thigh, initial encounter; E11.9 Type 2 diabetes mellitus without complications; I10 Essential (primary) hypertension; F41.9 Anxiety disorder, unspecified; I25.10 Atherosclerotic heart disease of native coronary artery without angina pectoris; Q87.40 Marfan syndrome, unspecified; Z88.1 Allergy status to other antibiotic agents; Z79.899 Other long term (current) drug therapy; Z79.82 Long term (current) use of aspirin; Z79.01 Long term (current) use of anticoagulants; Z95.1 Presence of aortocoronary bypass graft; Z90.710 Acquired absence of both cervix and uterus; Z98.890 Other specified postprocedural states; X58.XXXA Exposure to other specified factors, initial encounter; Y93.89 Activity, other specified; Y92.89 Other specified places as the place of occurrence of the external cause; Y99.8 Other external cause status
CPT/HCPCS: 36415; 85025; 85610; 85730; 99283

== ENCOUNTER 2024-12-01 21:19 | Emergency (ER) | payer OTHER ==
[~2024-12-01] VITALS: Ht 177.8 cm; Wt 113.4 kg
[2024-12-01] MEDS ORDERED: SULF1TAB42 PO (22:47)
[2024-12-01] MEDS ORDERED: MUPI22OI2 TP (22:47)
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
[2024-12-01 22:49] VITALS: BP 154/74; PULSE 82; RESP 18; TEMP 97.9; O2SAT 97
--- NOTE | 2024-12-02 08:59 | HMCIMG ---
Exam Type: TOE(S) 2+VWS LT Clinical Information: CONTUSION/WOUND Comparison: None Findings and impression: Oblique fracture with distal intra-articular extension proximal phalanx of the big toe. No other fractures or abnormalities.
== END 2024-12-01 22:50 | disposition home or self-care (01) ==
LOC: EDH 21:19
DX: S92.412A Displaced fracture of proximal phalanx of left great toe, initial encounter for closed fracture (principal); E11.621 Type 2 diabetes mellitus with foot ulcer; F41.9 Anxiety disorder, unspecified; I10 Essential (primary) hypertension; I25.10 Atherosclerotic heart disease of native coronary artery without angina pectoris; Z79.82 Long term (current) use of aspirin; Z79.899 Other long term (current) drug therapy; Z88.1 Allergy status to other antibiotic agents; Z90.710 Acquired absence of both cervix and uterus; Z95.1 Presence of aortocoronary bypass graft; W22.8XXA Striking against or struck by other objects, initial encounter; Y93.89 Activity, other specified; Y92.89 Other specified places as the place of occurrence of the external cause; Y99.8 Other external cause status
CPT/HCPCS: 73660; 99283